=== PATIENT | male | born 1945 | race Caucasian/White ===

== ENCOUNTER → 2017-12-25 11:07 | Outpatient (CLI) | payer OTHER, SELFPAY ==
[2017-12-25 12:16] LABS: Add Manual Diff / Slide Review NO; Basophils Percent Auto 0.4 % (0-2); Eosinophils Percent Auto 2.4 % (2-4); Hematocrit 39.9 % (41-53); Hemoglobin 13.9 g/dL (13.5-17.5); Lymphocytes Percent Auto 25.2 % (25-40); Mean Corpuscular HGB Conc 34.8 % (30-36); Mean Corpuscular Hemoglobin 29.3 PG (26-34); Monocytes Percent Auto 10.2 % (3-14); Neutrophils Absolute Auto 3500 /uL (3000-5900); Neutrophils Percent Auto 61.8 % (50-75); Platelet Count 316 X10^3/uL (150-400); Red Blood Cell Count 4.74 X10^6/uL (4.5-5.9); Red Cell Distribution Width 12.5 % (11.6-14.8); White Blood Cell Count 5.7 X10^3/uL (4.5-11.0)
[2017-12-25 12:24] LABS: Alanine Aminotransferase 24 IU/L (21-72); Albumin 4.6 g/dL (3.5-5.0); Albumin Globulin Ratio 1.5 (1.0-2.8); Alkaline Phosphatase 41 U/L (38-126); Aspartate Aminotransferase 31 IU/L (17-59); Bilirubin Total 0.4 mg/dL (0.2-1.3); Blood Urea Nitrogen 12 mg/dL (9-20); Calcium 9.6 mg/dL (8.4-10.2); Carbon Dioxide 30 mmol/L (22-32); Chloride 93 mmol/L (98-107); Estimated Glomerular Filt Rate > 60.0 mL/min (>60); Globulin 3.1 g/dL (1.7-4.1); Glucose 109 mg/dL (80-110); HEMOLYSIS < 15 (0-50); Potassium 4.4 mmol/L (3.4-5.1); Sodium 134 mmol/L (137-145); Total Protein 7.7 g/dL (6.3-8.2)
[2017-12-25 13:38] LABS: Hemoglobin A1C% w Est Avg Glu 5.4 % (4.0-6.0)
[2017-12-25 17:11] LABS: HEMOLYSIS < 15 (0-50); Iron 76 ug/dL (49-181)
[2017-12-25 17:22] LABS: Percent Iron Saturation 25 % (20-50); Total Iron Binding Capacity 304 ug/dL (261-462); Transferrin 241 mg/dL (206-381)
== END ==
PROVIDERS: Family Provider Internal Medicine; PCP Internal Medicine; Visit Provider Internal Medicine
DX: I10 Essential (primary) hypertension (principal); D63.8 Anemia in other chronic diseases classified elsewhere; M15.0 Primary generalized (osteo)arthritis; E11.9 Type 2 diabetes mellitus without complications
CPT/HCPCS: 36415; 80053; 83036; 83540; 83550; 85025

== ENCOUNTER → 2018-06-24 07:04 | Outpatient (CLI) | payer OTHER, SELFPAY ==
[2018-06-24 08:05] LABS: Add Manual Diff / Slide Review NO; Basophils Absolute Auto 0 /uL (0-100); Basophils Percent Auto 0.3 % (0-2); Eosinophils Absolute Auto 100 /uL (0-450); Eosinophils Percent Auto 1.4 % (2-4); Hematocrit 41.1 % (41-53); Hemoglobin 14.2 g/dL (13.5-17.5); Lymphocytes Absolute Auto 1200 /uL (1100-4500); Mean Corpuscular HGB Conc 34.4 % (30-36); Mean Corpuscular Hemoglobin 29.1 PG (26-34); Mean Corpuscular Volume 84.6 fL (80-100); Monocytes Absolute Auto 600 /uL (0-900); Neutrophils Absolute Auto 2700 /uL (1500-7000); Neutrophils Percent Auto 59.3 % (50-75); Platelet Count 304 X10^3/uL (150-400); Red Blood Cell Count 4.86 X10^6/uL (4.5-5.9); Red Cell Distribution Width 12.5 % (11.6-14.8); White Blood Cell Count 4.5 X10^3/uL (4.5-11.0)
[2018-06-24 08:23] LABS: Hemoglobin A1C% w Est Avg Glu 5.4 % (4.0-6.0)
[2018-06-24 08:52] LABS: Alanine Aminotransferase 36 IU/L (21-72); Albumin 4.8 g/dL (3.5-5.0); Albumin Globulin Ratio 1.5 (1.0-2.8); Alkaline Phosphatase 50 U/L (38-126); Aspartate Aminotransferase 35 IU/L (17-59); BUN Creatinine Ratio 21.3 (6-22); Bilirubin Total 0.6 mg/dL (0.2-1.3); Blood Urea Nitrogen 17 mg/dL (9-20); Calcium 9.8 mg/dL (8.4-10.2); Carbon Dioxide 28 mmol/L (22-32); Chloride 92 mmol/L (98-107); Cholesterol 170 mg/dL (140-199); Estimated Glomerular Filt Rate > 60.0 mL/min (>60); Globulin 3.2 g/dL (1.7-4.1); Glucose 109 mg/dL (80-110); HDL Cholesterol 47 mg/dL (40-60); HEMOLYSIS < 15 (0-50); LDL Cholesterol Calculated 109 mg/dL (<100); Potassium 3.7 mmol/L (3.4-5.1); Sodium 133 mmol/L (137-145); Triglycerides 71 mg/dL (35-150)
[2018-06-24 09:22] LABS: Prostate Specific Antigen 0.151 ng/mL (0.10-4.00)
== END ==
PROVIDERS: PCP Internal Medicine; Visit Provider Internal Medicine
DX: I10 Essential (primary) hypertension (principal); E11.9 Type 2 diabetes mellitus without complications; B18.2 Chronic viral hepatitis C
CPT/HCPCS: 36415; 80053; 80061; 83036; 84153; 85025

== ENCOUNTER → 2019-01-01 10:59 | Outpatient (CLI) | payer OTHER, SELFPAY ==
[2019-01-01 11:28] LABS: Add Manual Diff / Slide Review NO; Basophils Absolute Auto 0 /uL (0-100); Basophils Percent Auto 0.4 % (0-2); Eosinophils Absolute Auto 100 /uL (0-450); Eosinophils Percent Auto 2.4 % (2-4); Hematocrit 41.3 % (41-53); Hemoglobin 14.1 g/dL (13.5-17.5); Lymphocytes Absolute Auto 1500 /uL (1100-4500); Lymphocytes Percent Auto 30.7 % (25-40); Mean Corpuscular HGB Conc 34.2 % (30-36); Mean Corpuscular Hemoglobin 29.1 PG (26-34); Monocytes Absolute Auto 700 /uL (0-900); Monocytes Percent Auto 14.9 % (3-14); Neutrophils Absolute Auto 2500 /uL (1500-7000); Neutrophils Percent Auto 51.6 % (50-75); Platelet Count 282 X10^3/uL (150-400); Red Blood Cell Count 4.85 X10^6/uL (4.5-5.9); Red Cell Distribution Width 12.7 % (11.6-14.8); White Blood Cell Count 4.8 X10^3/uL (4.5-11.0)
[2019-01-01 11:41] LABS: Hemoglobin A1C% w Est Avg Glu 5.2 % (4.0-6.0)
[2019-01-01 11:42] LABS: Alanine Aminotransferase 16 IU/L (21-72); Albumin 4.7 g/dL (3.5-5.0); Albumin Globulin Ratio 1.4 (1.0-2.8); Alkaline Phosphatase 47 U/L (38-126); Aspartate Aminotransferase 26 IU/L (17-59); Bilirubin Total 0.6 mg/dL (0.2-1.3); Blood Urea Nitrogen 23 mg/dL (9-20); Calcium 9.8 mg/dL (8.4-10.2); Carbon Dioxide 29 mmol/L (22-32); Chloride 96 mmol/L (98-107); Cholesterol 187 mg/dL (140-199); Estimated Glomerular Filt Rate > 60.0 mL/min (>60); Globulin 3.3 g/dL (1.7-4.1); Glucose 88 mg/dL (80-110); HDL Cholesterol 49 mg/dL (40-60); HEMOLYSIS < 15 (0-50); LDL Cholesterol Calculated 105 mg/dL (<100); Potassium 4.2 mmol/L (3.4-5.1); Sodium 138 mmol/L (137-145); Triglycerides 167 mg/dL (35-150)
[2019-01-01 12:09] LABS: Prostate Specific Antigen 0.228 ng/mL (0.10-4.00)
== END ==
PROVIDERS: PCP Internal Medicine; Visit Provider Internal Medicine
DX: I10 Essential (primary) hypertension (principal); B18.2 Chronic viral hepatitis C; E11.9 Type 2 diabetes mellitus without complications
CPT/HCPCS: 36415; 80053; 80061; 83036; 84153; 85025

== ENCOUNTER → 2020-01-12 07:12 | Outpatient (CLI) | payer OTHER, SELFPAY ==
[2020-01-12 08:46] LABS: Add Manual Diff / Slide Review NO; Basophils Absolute Auto 0 /uL (0-100); Basophils Percent Auto 0.5 % (0-2); Eosinophils Absolute Auto 100 /uL (0-450); Eosinophils Percent Auto 1.9 % (2-4); Hematocrit 41.2 % (41-53); Hemoglobin 13.9 g/dL (13.5-17.5); Lymphocytes Absolute Auto 1300 /uL (1100-4500); Lymphocytes Percent Auto 28.1 % (25-40); Mean Corpuscular HGB Conc 33.8 % (30-36); Mean Corpuscular Hemoglobin 28.4 PG (26-34); Mean Corpuscular Volume 84.2 fL (80-100); Monocytes Absolute Auto 700 /uL (0-900); Monocytes Percent Auto 14.4 % (3-14); Neutrophils Absolute Auto 2500 /uL (1500-7000); Neutrophils Percent Auto 55.1 % (50-75); Platelet Count 239 X10^3/uL (150-400); Red Blood Cell Count 4.89 X10^6/uL (4.5-5.9); Red Cell Distribution Width 13.3 % (11.6-14.8); White Blood Cell Count 4.6 X10^3/uL (4.5-11.0)
[2020-01-12 08:56] LABS: Alanine Aminotransferase 18 IU/L (<50); Albumin 4.5 g/dL (3.5-5.0); Albumin Globulin Ratio 1.4 (1.0-2.8); Alkaline Phosphatase 53 U/L (38-126); Aspartate Aminotransferase 26 IU/L (17-59); BUN Creatinine Ratio 19.8 (6-22); Bilirubin Total 0.6 mg/dL (0.2-1.3); Blood Urea Nitrogen 17 mg/dL (9-20); Calcium 9.5 mg/dL (8.4-10.2); Carbon Dioxide 28 mmol/L (22-32); Chloride 98 mmol/L (98-107); Cholesterol 186 mg/dL (140-199); Estimated Glomerular Filt Rate > 60.0 mL/min (>60); Globulin 3.2 g/dL (1.7-4.1); Glucose 109 mg/dL (80-110); HDL Cholesterol 51 mg/dL (40-60); HEMOLYSIS < 15 (0-50); LDL Cholesterol Calculated 119 mg/dL (<100); Potassium 3.7 mmol/L (3.4-5.1); Sodium 135 mmol/L (137-145); Total Protein 7.7 g/dL (6.3-8.2); Triglycerides 82 mg/dL (35-150)
[2020-01-12 09:02] LABS: Hemoglobin A1C% w Est Avg Glu 5.5 % (4.0-6.0)
== END ==
PROVIDERS: PCP Internal Medicine; Referring Provider Internal Medicine; Visit Provider Internal Medicine
DX: E11.9 Type 2 diabetes mellitus without complications (principal); I10 Essential (primary) hypertension; M21.372 Foot drop, left foot
CPT/HCPCS: 36415; 80053; 80061; 83036; 85025

== ENCOUNTER → 2020-06-21 12:02 | Outpatient (CLI) | payer MEDICARE, SELFPAY ==
[2020-06-21] MEDS: COVID-19 VACC #1, MRNA(MOD) 100 MCG/0.5 ML VIAL IM (12:05)
== END ==
PROVIDERS: PCP Internal Medicine; Visit Provider Internal Medicine
DX: Z23 Encounter for immunization (principal)
CPT/HCPCS: 0011A; 91301

== ENCOUNTER → 2020-07-04 07:39 | Outpatient (CLI) | payer OTHER, SELFPAY ==
[2020-07-04 08:59] LABS: BUN Creatinine Ratio 21.1 (6-22); Blood Urea Nitrogen 19 mg/dL (9-20); Calcium 9.3 mg/dL (8.4-10.2); Carbon Dioxide 31 mmol/L (22-32); Chloride 98 mmol/L (98-107); Estimated Glomerular Filt Rate > 60.0 mL/min (>60); Glucose 124 mg/dL (80-110); HEMOLYSIS < 15 (0-50); Potassium 4.1 mmol/L (3.4-5.1); Sodium 135 mmol/L (137-145)
== END ==
PROVIDERS: PCP Internal Medicine; Referring Provider Internal Medicine; Visit Provider Internal Medicine
DX: I10 Essential (primary) hypertension (principal)
CPT/HCPCS: 36415; 80048

== ENCOUNTER → 2020-07-19 12:16 | Outpatient (CLI) | payer MEDICARE, SELFPAY ==
[2020-07-19] MEDS: COVID-19 VACC #2, MRNA(MOD) 100 MCG/0.5 ML VIAL IM (12:25)
== END ==
PROVIDERS: PCP Internal Medicine; Visit Provider Internal Medicine
DX: Z23 Encounter for immunization (principal)
CPT/HCPCS: 0012A; 91301

== ENCOUNTER → 2020-08-01 13:18 | Outpatient (CLI) | payer OTHER, SELFPAY ==
--- NOTE | 2020-08-01 13:19 | DI.ECHO.S_ITS ---
[facility] +---------+ : : [address] : : : : [id number] : : : : Phone: [phone]+ Echocardiogram Report + + :Name: ALISSON CAMPOS Study Date: 08/01/2020 Height: 70 in : :[facility] ReadingLocation: Weight: 213 lb : : Gender: Male BSA: 2.1 m2 : :: 1945 Age: 74 yrs BP: 127/76 mmHg: :Reason For Study: AORTIC STENOSIS : :Ordering Physician: MORENO, : :TAE Performed By: Jade Lake : :Referring: ATE MAYER : + + Interpretation Summary The left ventricle is normal in size. The ejection fraction is estimated to be 60-65%. There are no focal wall motion abnormalities. The right ventricle is normal in size and function. No significant valvular pathology seen. Procedure: A two-dimensional transthoracic echocardiogram with color flow and Doppler was performed. The study quality was technically adequate. There is no prior echocardiogram noted for this patient. The patient was in normal sinus rhythm during the exam. The heart rate ranged between 73-87 bpm during the study. Left Ventricle: The left ventricle is normal in size. Proximal septal thickening is noted. There is no echo evidence for significant left ventricular outflow tract obstruction. There is no thrombus. The ejection fraction is estimated to be 60-65%. There are no focal wall motion abnormalities. Diastolic parameters suggest a relaxation abnormality of the left ventricle, consistent with probable normal filling pressures. Right Ventricle: The right ventricle is normal in size and function. Atria: The left atrial size is normal. Right atrial size is normal. There is no Doppler evidence for an interatrial shunt. The thickening of interatrial septum suggests lipomatous hypertrophy. Mitral Valve: There is mild mitral annular calcification. The mitral valve leaflets are mildly calcified. The mitral valve chordae are thickened and/or calcified. There is trace mitral regurgitation. Aortic Valve: The aortic valve is trileaflet. The aortic valve opens well. There is no aortic valve stenosis. No aortic regurgitation is present. Tricuspid Valve: The tricuspid valve is normal in structure and function. There is trace tricuspid regurgitation. Pulmonary artery pressures cannot be estimated because of the lack of a measurable TR jet velocity. Pulmonic Valve: The pulmonic valve is not well visualized. There is trace pulmonic regurgitation. Great Vessels: The aortic root is normal size. The ascending aorta is at the upper limits of normal in size. The IVC is of normal diameter and collapses greater than 50% with a sniff. This suggests a low right atrial pressure of 3 mm Hg. Pericardium/ Pleura There is no pericardial effusion. There is no pleural effusion. MMode/2D Measurements & Calculations LVIDd: 4.6 cm LVOT diam: 2.1 cm LVIDs: 2.9 cm Ao root diam: 3.9 cm FS: 38.2 % asc Aorta Diam: 3.9 cm EPSS: 0.55 cm Ao Arch Diam (Prox Trans): 2.8 cm IVSd: 0.88 cm LVPWd: 0.83 cm LV pradhan. diameter/BSA (cm/m^2): 2.2 LV sys. diameter/BSA (cm/m^2): 1.3 LA A2 area: 17.7 cm2 RA long axis: 5.7 cm LA A4 area: 15.3 cm2 RA area: 16.5 cm2 LA length (vol): 5.4 cm RA vol: 40.5 ml LA vol: 42.2 ml RA : 18.9 ml/m2 LA vol index: 19.7 ml/m2 IVC diam: 0.95 cm RVD1 (basal): 3.1 cm TAPSE: 2.5 cm Doppler Measurements & Calculations Ao V2 max: 111.8 cm/sec LVOT Max Nick: 107.1 cm/sec Ao V2 mean: 81.7 cm/sec LV V1 max P.6 mmHg Ao max P.0 mmHg LV V1 VTI: 20.0 cm Ao mean P.9 mmHg LATRICIA(I,D): 3.3 cm2 Ao V2 VTI: 21.5 cm LATRICIA(V,D): 3.4 cm2 sev ratio: 0.93 LATRICIA indexed to BSA (cm^2/m^2): 1.6 MV E max nick: 77.7 cm/sec PA V2 max: 69.4 cm/sec MV A max nick: 109.4 cm/sec PA V2 mean: 47.3 cm/sec MV E/A: 0.71 PA mean P.0 mmHg Med Peak E' Nick: 6.8 cm/sec PA pr(Accel): 22.5 mmHg E/E' med: 11.4 Lat Peak E' Nick: 7.4 cm/sec E/E' lat: 10.5 E/e' average: 11.0 MV dec time: 0.36 sec SV(LVOT): 71.4 ml Reading Physician:05:58 PM
== END ==
PROVIDERS: PCP Internal Medicine; Referring Provider Internal Medicine; Visit Provider Internal Medicine
DX: I35.8 Other nonrheumatic aortic valve disorders (principal)
CPT/HCPCS: 93306

== ENCOUNTER → 2020-12-19 11:56 | Outpatient (CLI) | payer OTHER, SELFPAY ==
--- NOTE | 2020-12-19 | DI.MRI.S_ITS ---
PROCEDURE: MR BRAIN (IAC) WWO CON INDICATIONS: Sudden idiopathic hearing loss, left ear TECHNIQUE: Noncontrast sagittal T1 spin echo, axial FLAIR, axial gradient echo, axial diffusion and ADC through the brain. Axial thin-slice 3D CISS, coronal TruFISP, axial T1 spin echo with fat saturation through the internal auditory canals. After the administration of contrast, thin slice axial and coronal T1 spin echo with fat saturation through the internal auditory canals, and axial T1 spin echo with fat saturation through the brain. COMPARISON: MR, BRAIN WITH AND WITHOUT CONTRAS, 10/06/2009, 17:21. FINDINGS: Image quality: Excellent. Cerebellopontine angles: No cerebellopontine angle masses. Inner ear structures appear normally formed. No suspicious enhancement in the internal auditory canal or along the course of the 7th cranial nerve. CSF spaces: Ventricles are normal in size and shape. No extra-axial fluid collections. Basal cisterns are patent. Brain: No intracranial bleeds or mass effects. There is moderate, diffuse cerebral volume loss. There are minimal periventricular and subcortical white matter chronic microvascular ischemic changes. Cruz-white matter interface is intact. No abnormal intracranial enhancement. Diffusion weighted images demonstrate no acute ischemic insults. Brainstem appears normal. Normal intravascular flow voids are present. Dural sinuses demonstrate normal postcontrast enhancement. Skull and face: Calvarial marrow signal is normal. Orbits appear normal. Sinuses: Sinuses and mastoids are clear. IMPRESSION: 1. No evidence of vestibular schwannoma. 2. No acute intracranial disease process. 3. No abnormal intracranial mass or mass effect. 4. No suspicious postcontrast enhancement. 5. Moderate, diffuse cerebral volume loss. 6. Minimal periventricular and subcortical white matter chronic microvascular ischemic change. Dictated by: Jyothi Jones MD, PhD on 12/19/2020 at 17:11 Approved by: Jyothi Jones MD, PhD on 12/19/2020 at 17:16
== END ==
PROVIDERS: PCP Internal Medicine; Referring Provider Otolaryngology; Visit Provider Otolaryngology
DX: H91.22 Sudden idiopathic hearing loss, left ear (principal)
CPT/HCPCS: 70553

== ENCOUNTER 2022-08-28 11:01 | Emergency (ER) | payer OTHER, SELFPAY ==
[2022-08-28] VITALS (11 sets, daily range): BP systolic 109–147; BP diastolic 65–89; PULSE 74–93; RESP 12–19; TEMP 36.6; O2SAT 96–100; BMI 29.5
[2022-08-28 12:02] LABS: Add Manual Diff / Slide Review NO; Basophils Absolute Auto 0 /uL (0-100); Basophils Percent Auto 0.3 % (0-2); Eosinophils Absolute Auto 0 /uL (0-450); Eosinophils Percent Auto 0.7 % (2-4); Hematocrit 45.4 % (41-53); Hemoglobin 15.3 g/dL (13.5-17.5); Lymphocytes Absolute Auto 1400 /uL (1100-4500); Lymphocytes Percent Auto 21.5 % (25-40); Mean Corpuscular HGB Conc 33.8 % (30-36); Mean Corpuscular Hemoglobin 29.2 PG (26-34); Mean Corpuscular Volume 86.3 fL (80-100); Monocytes Absolute Auto 600 /uL (0-900); Monocytes Percent Auto 9.5 % (3-14); Neutrophils Absolute Auto 4500 /uL (1500-7000); Platelet Count 278 X10^3/uL (150-400); Red Blood Cell Count 5.26 X10^6/uL (4.5-5.9); Red Cell Distribution Width 12.9 % (11.6-14.8); White Blood Cell Count 6.6 X10^3/uL (4.5-11.0)
[2022-08-28 12:08] LABS: Alanine Aminotransferase 21 IU/L (<50); Albumin 4.6 g/dL (3.5-5.0); Albumin Globulin Ratio 1.2 (1.0-2.8); Alkaline Phosphatase 51 U/L (38-126); Aspartate Aminotransferase 34 IU/L (17-59); BUN Creatinine Ratio 18.6 (6-22); Bilirubin Total 0.7 mg/dL (0.2-1.3); Blood Urea Nitrogen 13 mg/dL (9-20); Calcium 9.7 mg/dL (8.4-10.2); Carbon Dioxide 27 mmol/L (22-32); Chloride 98 mmol/L (98-107); Estimated Glomerular Filt Rate > 60 mL/min (>60); Globulin 3.7 g/dL (1.7-4.1); Glucose 127 mg/dL (80-110); HEMOLYSIS < 15 (0-50); Potassium 3.5 mmol/L (3.4-5.1); Sodium 135 mmol/L (137-145); Total Protein 8.3 g/dL (6.3-8.2)
--- NOTE | 2022-08-28 13:18 | ED_ITS ---
HPI - Dizziness General Chief Complaint: Dizziness Stated Complaint: sent by WIC/stroke Time Seen by Provider: 08/28/22 11:32 Source: patient and family Mode of arrival: Ambulatory History of Present Illness HPI Narrative: Patient is a 76-year-old male history of hypertension presenting today with dizziness that started since yesterday. He reports that he woke up into the exercise room plugged in his electronic device turned around and immediately felt dizzy. States that now every time he walks with his walker healing left. He is feeling little bit better today than he did previously. But is still very positional. Minimal nausea no vomiting. No chest pain or palpitations. No numbness tingling or weakness. Related Data Home Medications Medication Instructions Recorded Confirmed amlodipine 10 mg tablet 10 mg PO Q DAY ##0 08/31/11 08/28/22 lisinopril 40 mg tablet 40 mg PO QDAY ##0 08/31/11 08/28/22 hydrochlorothiazide 25 mg tablet 25 mg PO QDAY ##0 09/12/11 08/28/22 CA PANTOTHENATE/FOLIC ACID/VIT 1 tab PO QDAY ##0 06/20/12 (MULTIVITAMIN) CHOLECALCIFEROL (VITAMIN D) 2,000 units PO QDAY ##0 06/20/12 Fish Oil (FISH OIL~) 2,400 mg PO QDAY ##0 06/20/12 [CALCIUM & VIT. D3] 600 mg PO QDAY ##0 06/20/12 [SUPER B-50 COMPLEX] 1 tab PO QDAY ##0 06/20/12 ascorbic acid (vitamin C) 500 mg 1,000 mg PO QDAY ##0 06/20/12 tablet gabapentin 600 mg tablet 600 mg PO TID ##0 06/20/12 (Neurontin) tramadol 50 mg tablet 100 mg PO Q 6HRS PRN ##0 06/20/12 Previous Rx's Medication Instructions Recorded meclizine 25 mg tablet 25 mg PO TID PRN dizziness #10 tabs 08/28/22 ondansetron 4 mg disintegrating 4 mg PO Q8H PRN nausea and 08/28/22 tablet vomiting #10 tabs Allergies Allergy/AdvReac Type Severity Reaction Status Date / Time No Known Drug Allergies Allergy Verified 08/28/22 11:23 Review of Systems Review of Systems ROS Unobtainable: All systems reviewed & are unremarkable except as noted in HPI and below Patient History Social History Smoking Status: Never smoker Smoking Status: Never smoker alcohol intake frequency: 0-2 drinks per day Substance Use Type: does not use Exam Initial Vital Signs Initial Vital Signs: Vital Signs Temperature 97.9 F 08/28/22 11:03 Pulse Rate 89 08/28/22 11:03 Respiratory Rate 18 08/28/22 11:03 Blood Pressure 147/89 H 08/28/22 11:03 Pulse Oximetry 100 08/28/22 11:03 Oxygen Delivery Method Room Air 08/28/22 11:03 GENERAL: Alert well-appearing 76-year-old male and in no acute distress. HEENT: Head atraumatic,EOMI, pupils reactive, face symmetric, moist mucous membranes CARDIOVASCULAR: Regular rate and rhythm without murmurs, rubs or gallops. RESPIRATORY: Breath sounds equal bilaterally, no wheezes rales or rhonchi. ABDOMEN: Soft, nontender. Normoactive bowel sounds all 4 quadrants. No guarding or rebound. EXTREMITIES: Normal range of motion, no clubbing or edema. Neurovascularly intact NEUROLOGICAL: Alert and oriented x4.Normal gait and speech. Cranial nerves II through XII grossly intact. Good myzktf-lj-dgqj, good bjoh-iv-rvnf, strength equal bilaterally, no dysarthria or aphasia, sensation in tact to soft touch bilaterally, no visual changes, no facial droop SKIN: Warm, dry, no laceration, no petechiae, no rashes or lesions. Scores NIH Stroke Scale Level of Conciousness: Alert, keenly responsive Ask month/age: Answers both questions correctly. Open/close eyes, close hand: Performs both tasks correctly Best gaze horizontal: Normal Visual odom: No visual loss Facial palsy: Normal symetrical movement Left arm drift: No drift for full 10 sec Right arm drift: No drift for full 10 sec Left leg drift: No drift for full 5 sec Right leg drift: No drift for full 5 sec Limb ataxia: Absent Sensory on face/arms/legs: Normal, no sensory loss Best language: No aphasia, normal Dysarthria: Normal Extinction or inattention: No abnormality Total NIH Stroke scale score: 0 Course Orders Ordered: ED Orders 08/28/22 11:15 Complete Blood Count AUTO DIFF Stat Comprehensive Metabolic Panel Stat Troponin & CK Cardiac Panel Stat 08/28/22 11:25 EKG-12 Lead Stat 08/28/22 13:56 CT angio head and neck Stat Vital Signs Vital signs: Vital Signs - 8 hr 08/28/22 11:03 08/28/22 11:09 08/28/22 11:11 Temperature 97.9 F Pulse Rate 89 87 Respiratory Rate 18 Blood Pressure 147/89 H 147/89 H Pulse Oximetry 100 Oxygen Delivery Method Room Air 08/28/22 11:11 08/28/22 11:30 08/28/22 11:30 Temperature Pulse Rate 93 H 82 Respiratory Rate 12 12 Blood Pressure 119/72 Pulse Oximetry 100 99 Oxygen Delivery Method Room Air 08/28/22 12:00 08/28/22 12:00 08/28/22 12:30 Temperature Pulse Rate 78 Respiratory Rate 16 Blood Pressure 117/65 109/72 Pulse Oximetry 98 Oxygen Delivery Method 08/28/22 12:30 08/28/22 13:00 08/28/22 13:00 Temperature Pulse Rate 76 80 Respiratory Rate 15 19 Blood Pressure 123/84 Pulse Oximetry 98 99 Oxygen Delivery Method Room Air 08/28/22 14:56 08/28/22 13:30 08/28/22 13:30 Temperature Pulse Rate 81 81 Respiratory Rate 17 16 Blood Pressure 120/76 122/84 Pulse Oximetry 96 99 Oxygen Delivery Method Room Air 08/28/22 14:00 08/28/22 14:30 Temperature Pulse Rate 80 74 Respiratory Rate 13 13 Blood Pressure Pulse Oximetry 99 99 Oxygen Delivery Method MDM - Dizziness Lab Data 08/28/22 11:15 08/28/22 11:15 Labs: Lab Results 08/28/22 08/28/22 08/28/22 Range/Units 11:15 11:15 11:15 WBC 6.6 (4.5-11.0) X10^3/uL RBC 5.26 (4.5-5.9) X10^6/uL Hgb 15.3 (13.5-17.5) g/dL Hct 45.4 (41-53) % MCV 86.3 (80-100) fL MCH 29.2 (26-34) PG MCHC 33.8 (30-36) % RDW 12.9 (11.6-14.8) % Plt Count 278 (150-400) X10^3/uL Neut % (Auto) 68.0 (50-75) % Lymph % (Auto) 21.5 L (25-40) % Bee % (Auto) 9.5 (3-14) % Eos % (Auto) 0.7 L (2-4) % Baso % (Auto) 0.3 (0-2) % Neut # (Auto) 4500 (0617-2529) /uL Lymph # (Auto) 1400 (8786-7951) /uL Bee # (Auto) 600 (0-900) /uL Eos # (Auto) 0 (0-450) /uL Baso # (Auto) 0 (0-100) /uL Sodium 135 L (137-145) mmol/L Potassium 3.5 (3.4-5.1) mmol/L Chloride 98 (98-107) mmol/L Carbon Dioxide 27 (22-32) mmol/L BUN 13 (9-20) mg/dL Creatinine 0.70 (0.66-1.25) mg/dL Estimated GFR > 60 (>60) mL/min BUN/Creatinine Ratio 18.6 (6-22) Glucose 127 H (80-110) mg/dL Calcium 9.7 (8.4-10.2) mg/dL Total Bilirubin 0.7 (0.2-1.3) mg/dL AST 34 (17-59) IU/L ALT 21 (<50) IU/L Alkaline Phosphatase 51 (38-126) U/L Total Creatine Kinase 92 (55-170) U/L CK-MB (CK-2) TNP CK-MB (CK-2) Rel Index TNP Troponin I < 0.012 (0.01-0.034) ng/mL Total Protein 8.3 H (6.3-8.2) g/dL Albumin 4.6 (3.5-5.0) g/dL Globulin 3.7 (1.7-4.1) g/dL Albumin/Globulin Ratio 1.2 (1.0-2.8) Point of Care Testing Glucose POC 124 Urine Dip Bedside Urine Glucose Negative Bedside Urine Bilirubin - Negative Bedside Urine Ketone - Negative Urine Specific [place] 1.010 Bedside Urine Occult Blood - Negative Bedside Urine pH 7.0 Bedside Urine Protein - Negative Bedside Urine Urobilinogen - Negative Bedside Urine Nitrite - Negative Bedside Urine Leukocytes - Negative Esterase Imaging Data Chest x-ray: Radiologist's Impression: PROCEDURE:? CT ANGIO HEAD AND NECK ? INDICATIONS:? dizzy leans to the left ? TECHNIQUE:? Pre-contrast 4.5 mm thick sections acquired from the foramen magnum to the vertex.? After the administration of intravenous contrast, 1 mm thick sections acquired from the aortic arch through the [place] of [place]arma.? Post-contrast 4.5 mm thick sections then re- acquired from the foramen magnum to the vertex.? 3-dimensional qvlnepo-sighpmibm-vtbymzoxua (MIP) and/or volume rendering reformats were acquired of the central intracranial vasculature and neck separately. For radiation dose reduction, the following was used:? automated exposure control, adjustment of mA and/or kV according to patient size.? ? COMPARISON:? None. ? FINDINGS:? Image quality:? Excellent.? ? BRAIN:? The ventricular system and cortical sulci demonstrate atrophy, consistent for the patient's stated age. There are areas of hypodensity within the periventricular and subcortical white matter.? There is no acute intra-or extra axial fluid colle ction. No acute hemorrhage, mass lesion or midline shift. Brainstem is unremarkable. Globes are symmetrical. Sinuses are aerated. Osseous structures are intact. ? HEAD CT ANGIOGRAPHY:? Anterior circulation:? Intracranial internal carotid arteries are normal in size and flow.? The flow within the paired anterior cerebral arteries is normal and symmetric.? The flow within the middle cerebral arteries is normal and symmetric.? The anterior communicating artery is seen.? No aneurysms are seen.? ? Posterior circulation:? Visualized portions of the vertebral arteries demonstrate normal caliber, and join to form a normal appearing basilar artery.? Flow within the posterior cerebral arteries is normal and symmetric.? No aneurysms are seen.? ? NECK CT ANGIOGRAPHY:? Carotid system:? The great vessels demonstrate a conventional anatomy as they arise from the aortic arch.? The origins of the common carotid arteries appear patent.? The common carotid arteries demonstrate normal caliber and courses.? The bifurcation regions are both widely patent.? There is calcification at the origin of the left internal carotid artery with 50-60% stenosis.? Calcifications are present at the origin of the right internal carotid artery with stenosis of approximately 60%.? In addition, there is calcification at the origin of the right external carotid artery with approximately 60% stenosis. ? Posterior circulation:? The origins of the vertebral arteries both appear widely patent.? The more superior extracranial portions of both vertebral arteries also demonstrate normal courses and calibers.? They join to form a normal appearing basilar artery.? ? Soft tissues:? Visualized neck soft tissues demonstrate no suspicious abnormalities.? ? Bones:? No suspicious bony lesions.? Visualized cervical spine appears normally aligned.? IMPRESSION:? ? 1. No acute intracranial process. ? 2. Moderate atrophy and chronic microvascular ischemic changes. ? 3. 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 ? 4. Approximate 60% stenosis at the origin of the right internal carotid artery. ? 5. Approximate 60% stenosis at the origin the right external carotid artery.? ? ? Any quantitative measurements of stenosis were performed using NASCET criteria.? ? ? Dictated by: Maki Torres M.D. on 08/28/2022 at 14:15 ? ? ECG Data Interpretation: Sinus rhythm rate 83 UT interval 190 QRS [address] changes right bundle- branch block noted similar to previous EKGs MDM Narrative Medical decision making narrative: Patient is 76-year-old who presents with with dizziness started yesterday morning when he quickly turned around. It is very much positional sitting still he has no dizziness. However when he moves in certain positions he gets very dizzy no numbness tingling or weakness. He also feels like when he walks and ambulates he walks towards the left. Blood work is overall reassuring. No leukocytosis no anemia, no electrolyte abnormality or PAULINE. Patient is not having any sort of chest pain or palpitations. EKG shows a sinus rhythm. He has no fever or infectious symptoms I think unlikely to be viral. Patient does not have any symptoms here in the emergency department does not require any medications. CT angio does not show any critical stenosis or evidence of CVA. He ambulated with walker without any difficulty did not lean to the left. At this time I think symptoms are most consistent with a vertigo. Discharge Plan Departure Patient Disposition: Home Clinical Impression: Vertigo Instructions: DI for Vertigo Activity Restrictions/Additional Instructions: *You have been diagnosed with vertigo *What to do: At this time your symptoms improve and you can enjoy your trip *Continue to take medications as directed--> SENT [facility] Meclizine 25 mg every 8 hours if needed for dizziness Zofran 4 mg every 8 hours if needed for nausea or vomiting *Follow up with your primary care provider in 2-3 days or call [phone] *Return to ER if you should have increasing dizziness persistent vomiting nu mbness tingling weakness or any new, worsening or concerning symptoms Prescriptions: New meclizine 25 mg tablet 25 mg PO TID PRN (Reason: dizziness) Qty: 10 0RF ondansetron 4 mg tablet,disintegrating 4 mg PO Q8H PRN (Reason: nausea and vomiting) Qty: 10 0RF No Action amlodipine 10 MG tablet 10 mg PO Q DAY Qty: 0 lisinopril 40 MG tablet 40 mg PO QDAY Qty: 0 hydrochlorothiazide 25 MG tablet 25 mg PO QDAY Qty: 0 [SUPER B-50 COMPLEX] 1 tab PO QDAY Qty: 0 CA PANTOTHENATE/FOLIC ACID/VIT (MULTIVITAMIN) 1 tab PO QDAY Qty: 0 tramadol 50 MG tablet 100 mg PO Q 6HRS PRN Qty: 0 ascorbic acid (vitamin C) 500 MG tablet 1,000 mg PO QDAY Qty: 0 CHOLECALCIFEROL (VITAMIN D) 2,000 units PO QDAY Qty: 0 gabapentin [Neurontin] 600 MG tablet 600 mg PO TID Qty: 0 Fish Oil (FISH OIL~) 2,400 mg PO QDAY Qty: 0 [CALCIUM & VIT. D3] 600 mg PO QDAY Qty: 0 Referrals: Saúl Ziegler MD [Primary Care Provider] - Stand Alone Forms: Patient Portal/API
[2022-08-28 13:49] LABS: Creatine Kinase 92 U/L (55-170)
--- NOTE | 2022-08-28 13:56 | DI.CT.S_ITS ---
PROCEDURE: CT ANGIO HEAD AND NECK INDICATIONS: dizzy leans to the left TECHNIQUE: Pre-contrast 4.5 mm thick sections acquired from the foramen magnum to the vertex. After the administration of intravenous contrast, 1 mm thick sections acquired from the aortic arch through the [place] of Sharma. Post-contrast 4.5 mm thick sections then re-acquired from the foramen magnum to the vertex. 3-dimensional wdhpfjk-fcinlaffd-ixkeelbtwr (MIP) and/or volume rendering reformats were acquired of the central intracranial vasculature and neck separately. For radiation dose reduction, the following was used: automated exposure control, adjustment of mA and/or kV according to patient size. COMPARISON: None. FINDINGS: Image quality: Excellent. BRAIN: The ventricular system and cortical sulci demonstrate atrophy, consistent for the patient's stated age. There are areas of hypodensity within the periventricular and subcortical white matter. There is no acute intra-or extra axial fluid collection. No acute hemorrhage, mass lesion or midline shift. Brainstem is unremarkable. Globes are symmetrical. Sinuses are aerated. Osseous structures are intact. HEAD CT ANGIOGRAPHY: Anterior circulation: Intracranial internal carotid arteries are normal in size and flow. The flow within the paired anterior cerebral arteries is normal and symmetric. The flow within the middle cerebral arteries is normal and symmetric. The anterior communicating artery is seen. No aneurysms are seen. Posterior circulation: Visualized portions of the vertebral arteries demonstrate normal caliber, and join to form a normal appearing basilar artery. Flow within the posterior cerebral arteries is normal and symmetric. No aneurysms are seen. NECK CT ANGIOGRAPHY: Carotid system: The great vessels demonstrate a conventional anatomy as they arise from the aortic arch. The origins of the common carotid arteries appear patent. The common carotid arteries demonstrate normal caliber and courses. The bifurcation regions are both widely patent. There is calcification at the origin of the left internal carotid artery with 50-60% stenosis. Calcifications are present at the origin of the right internal carotid artery with stenosis of approximately 60%. In addition, there is calcification at the origin of the right external carotid artery with approximately 60% stenosis. Posterior circulation: The origins of the vertebral arteries both appear widely patent. The more superior extracranial portions of both vertebral arteries also demonstrate normal courses and calibers. They join to form a normal appearing basilar artery. Soft tissues: Visualized neck soft tissues demonstrate no suspicious abnormalities. Bones: No suspicious bony lesions. Visualized cervical spine appears normally aligned. IMPRESSION: 1. No acute intracranial process. 2. Moderate atrophy and chronic microvascular ischemic changes. 3. 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 4. Approximate 60% stenosis at the origin of the right internal carotid artery. 5. Approximate 60% stenosis at the origin the right external carotid artery. Any quantitative measurements of stenosis were performed using NASCET criteria. Dictated by: Maki Torres M.D. on 08/28/2022 at 14:15 Approved by: Maki Torres M.D. on 08/28/2022 at 14:23
[2022-08-28 13:59] LABS: Troponin I < 0.012 ng/mL (0.01-0.034)
== END 2022-08-28 14:57 | disposition home or self-care (01) ==
PROVIDERS: Emergency Provider Emergency Medicine; PCP Internal Medicine
DX: R42 Dizziness and giddiness (principal); R41.82 Altered mental status, unspecified
CPT/HCPCS: 36415; 70496; 70498; 80053; 81003; 82550; 82962; 84484; 85025; 93005; 99284

== ENCOUNTER 2023-06-18 15:09 | Observation (INO) | payer OTHER, SELFPAY ==
[2023-06-18] VITALS (10 sets, daily range): BP systolic 112–162; BP diastolic 68–108; PULSE 77–94; RESP 13–23; TEMP 35.8–37; O2SAT 96–100; BMI 31.5; BMI 31.8
--- NOTE | 2023-06-18 | DI.ECHO.S_ITS ---
[facility] +---------+ [facility] +---------+ : : [address] : [place] [place] : : : : [id number] : : : : Phone: [phone]+ Echocardiogram Report + + :Name: ALISSON CAMPOS Study Date: 06/19/2023 Height: 70 in : :[facility] ReadingLocation: Weight: 220 lb : : Gender: Male BSA: 2.2 m2 : :: 1945 Age: 77 yrs BP: 120/77 mmHg: :Reason For Study: TIA : :Ordering Physician: DOC, : :VIDYA Estevez Performed By: Jade Lake : :Referring: VIDYA ROACH : + + Interpretation Summary The ejection fraction is estimated to be 60-65%. Diastolic parameters suggest probable normal left ventricular diastolic function and normal filling pressures. The right ventricle is normal in size and function. There is mild tricuspid regurgitation. The right ventricular systolic pressure is estimated to be at least 29 mmHg based on an estimated right atrial pressure of 3 mm Hg. Compared to the prior study dated 08/01/2020, no significant change. Procedure: A two-dimensional transthoracic echocardiogram with color flow and Doppler was performed. The study quality was technically adequate. Comparison is made with the echocardiogram of 08/01/2020. The patient was in sinus rhythm with heart rates between 75-80 bpm during the exam. Left Ventricle: The left ventricle is normal in size and wall thickness. The ejection fraction is estimated to be 60-65%. Diastolic parameters suggest probable normal left ventricular diastolic function and normal filling pressures. Right Ventricle: The right ventricle is normal in size and function. Atria: The left atrial size is normal. Right atrial size is normal. There is no Doppler evidence for an interatrial shunt. Mitral Valve: There is mild mitral annular calcification. The mitral valve leaflets appear mildly thickened, but open well. There is trace mitral regurgitation. Aortic Valve: The aortic valve is trileaflet. The aortic valve opens well. There is no aortic valve stenosis. No aortic regurgitation is present. Tricuspid Valve: The tricuspid valve is normal in structure and function. There is mild tricuspid regurgitation. The right ventricular systolic pressure is estimated to be at least 29 mmHg based on an estimated right atrial pressure of 3 mm Hg. Pulmonic Valve: The pulmonic valve leaflets are thin and pliable; valve motion is normal. There is no pulmonic valvular regurgitation. Great Vessels: The aortic root is normal size. The dimensions of the ascending aorta are normal. The IVC is of normal diameter and collapses greater than 50% with a sniff. This suggests a low right atrial pressure of 3 mm Hg. Pericardium/ Pleura There is no pericardial effusion. There is no pleural effusion. MMode/2D Measurements & Calculations LVIDd: 4.4 cm LVOT diam: 2.0 cm LVIDs: 2.8 cm Ao root diam: 3.5 cm FS: 37.1 % asc Aorta Diam: 3.8 cm EPSS: 0.64 cm IVSd: 0.75 cm LVPWd: 0.88 cm LV pradhan. diameter/BSA (cm/m^2): 2.0 LV sys. diameter/BSA (cm/m^2): 1.3 LA A2 area: 15.3 cm2 RA long axis: 5.3 cm LA A4 area: 16.0 cm2 RA area: 15.4 cm2 LA length (vol): 5.1 cm RA vol: 38.0 ml LA vol: 40.6 ml RA : 17.5 ml/m2 LA vol index: 18.7 ml/m2 IVC diam: 1.4 cm RVD1 (basal): 3.6 cm RVD2 (mid): 2.9 cm TAPSE: 2.2 cm Doppler Measurements & Calculations Ao V2 max: 128.0 cm/sec LVOT Max Nick: 124.3 cm/sec Ao V2 mean: 84.6 cm/sec LV V1 max P.2 mmHg Ao max P.6 mmHg LV V1 VTI: 22.2 cm Ao mean P.3 mmHg LATRICIA(I,D): 3.2 cm2 Ao V2 VTI: 21.2 cm LATRICIA(V,D): 3.0 cm2 sev ratio: 1.0 LATRICIA indexed to BSA (cm^2/m^2): 1.5 MV E max nick: 76.3 cm/sec TR max nick: 255.1 cm/sec MV A max nick: 125.2 cm/sec TR max P.0 mmHg MV E/A: 0.61 PA V2 max: 89.7 cm/sec Med Peak E' Nick: 7.4 cm/sec PA V2 mean: 65.9 cm/sec E/E' med: 10.3 PA mean P.9 mmHg Lat Peak E' Nick: 6.3 cm/sec PA pr(Accel): 46.5 mmHg E/E' lat: 12.1 E/e' average: 11.2 MV dec time: 0.23 sec SV(LVOT): 67.7 ml Reading Physician:12:27 PM
--- NOTE | 2023-06-18 15:20 | ED_ITS ---
HPI - Neuro Symptoms/Deficit General Chief Complaint: Neuro Symptoms/Deficit Stated Complaint: HBP, slurring words, not reading right Time Seen by Provider: 06/18/23 15:18 Source: patient Mode of arrival: Ambulatory History of Present Illness HPI Narrative: Patient is a 77-year-old male history of hypertension hyperlipidemia presenting today with slurring of speech and difficulty speaking. Last known well 1445. He reports that he got out a recipe card from delivered meal plan he was trying to rate it. noted that he was not saying the words right she thought he was being funny. They then were looking up symptoms of stroke he was having some slurring of speech at that time as well. He had no facial droop no unilateral weakness or other symptoms. Symptoms lasted for approximately 30 minutes and have self resolved. No chest pain shortness of breath or other symptoms. No prior history of TIA or CVA On Anticoagulants: No Related Data Home Medications Medication Instructions Recorded Confirmed CA PANTOTHENATE/FOLIC ACID/VIT 1 tab PO QDAY ##0 06/20/12 06/18/23 (MULTIVITAMIN) CHOLECALCIFEROL (VITAMIN D) 2,000 units PO QDAY ##0 06/20/12 06/18/23 Fish Oil (FISH OIL~) 2,400 mg PO QDAY ##0 06/20/12 06/18/23 [SUPER B-50 COMPLEX] 1 tab PO QDAY ##0 06/20/12 06/18/23 milk thistle seed extract 175 mg 175 mg PO DAILY Liver health post 05/21/23 06/18/23 capsule Hep-C Previous Rx's Medication Instructions Recorded amlodipine 5 mg tablet 5 mg PO DAILY blood pressure #90 05/21/23 tabs lisinopril 20 mg tablet 20 mg PO DAILY blood pressure #90 05/21/23 tabs rosuvastatin 5 mg tablet 5 mg PO DAILY cholesterol #90 tabs 05/21/23 Allergies Allergy/AdvReac Type Severity Reaction Status Date / Time No Known Drug Allergies Allergy Verified 05/21/23 14:49 Review of Systems Hematologic/Lymphatic On Anticoagulants: No Patient History Medical History Peritonitis Chronic low back pain Left foot drop Osteoarthritis Benign essential HTN Hyperlipidemia Social History household members: spouse Smoking Status: Never smoker Smoking Status: Never smoker tobacco type: vaping alcohol intake frequency: 0-2 drinks per day Substance Use Type: marijuana Exam Initial Vital Signs Initial Vital Signs: Vital Signs Pulse Rate 94 H 06/18/23 15:13 Respiratory Rate 23 06/18/23 15:13 Pulse Oximetry 97 06/18/23 15:13 GENERAL: Alert pleasant 77-year-old male and in [no acute] distress. HEENT: Head atraumatic,EOMI, pupils reactive, face symmetric, [moist] mucous membranes CARDIOVASCULAR: Regular rate and rhythm without murmurs, rubs or gallops. RESPIRATORY: Breath sounds equal bilaterally, no wheezes rales or rhonchi. ABDOMEN: Soft, nontender. Normoactive bowel sounds all 4 quadrants. No guarding or rebound. EXTREMITIES: Normal range of motion, no clubbing or edema. Neurovascularly intact NEUROLOGICAL: Alert and oriented x4.Normal gait and speech. Cranial nerves II through XII grossly intact. [Good [id number], good [id number], strength equal bilaterally, no dysarthria or aphasia, sensation in tact to soft touch bilaterally, no visual changes, no facial droop] SKIN: Warm, dry, no laceration, no petechiae, no rashes or lesions. Scores ABCD2 Age >= 60 years: yes Initial BP. Either SBP >= 140 or DBP >= 90.: yes Clinical features of the TIA: speech disturbance without weakness Duration of symptoms: 10-59 minutes History of diabetes: no ABCD2 Score: 4 NIH Stroke Scale Level of Conciousness: Alert, keenly responsive Ask month/age: Answers both questions correctly. Open/close eyes, close hand: Performs both tasks correctly Best gaze horizontal: Normal Visual odom: No visual loss Facial palsy: Normal symetrical movement Left arm drift: No drift for full 10 sec Right arm drift: No drift for full 10 sec Left leg drift: No drift for full 5 sec Right leg drift: No drift for full 5 sec Limb ataxia: Absent Sensory on face/arms/legs: Normal, no sensory loss Best language: No aphasia, normal Dysarthria: Normal Extinction or inattention: No abnormality Total NIH Stroke scale score: 0 Course Orders Ordered: ED Orders 06/18/23 15:19 Complete Blood Count AUTO DIFF Stat Comprehensive Metabolic Panel Stat Ethanol (ETOH) Stat PTT Partial Thromboplastin Jacinto Stat Prothrombin Time INR Stat Troponin & CK Cardiac Panel Stat 06/18/23 15:21 CT angio head and neck Stat CT head/brain wo con Stat 06/18/23 15:25 EKG-12 Lead Stat 06/18/23 16:03 Urinalysis and Microscopic Stat Urine Drug Screen, Rapid Stat 06/18/23 19:00 COVID19 -Nasal RAPID Stat Acetaminophen (Acetaminophen 325 Mg Tablet) 650 mg PO Q6H PRN PRN Reason: Fever/Mild Pain (1-3) Aspirin (Aspirin Ec 81 Mg Tablet) 81 mg PO DAILY NATASHA Atorvastatin Calcium (Atorvastatin 20 Mg Tablet) 80 mg PO BEDTIME NATASHA Clopidogrel Bisulfate (Clopidogrel 75 Mg Tablet) 75 mg PO DAILY [facility] Heparin Sodium (Porcine) (Heparin 5,000 Unit/Ml Vial) 5,000 unit SUBCUT BID NATASHA Naloxone HCl (Naloxone 0.4 Mg/Ml Vial) 0.2 mg IV Q2MIN PRN PRN Reason: Opiate Reversal Ondansetron HCl (Ondansetron 4 Mg/2 Ml Inj) 4 mg IV Q8HR PRN PRN Reason: Nausea And Vomiting Discontinued Medications Aspirin (Aspirin 81 Mg Chew Tab) 324 mg PO NOW ONE Stop: 06/18/23 16:31 Last Admin: 06/18/23 16:39 Dose: 324 mg Documented By: BREA Clopidogrel Bisulfate (Clopidogrel 75 Mg Tablet) 300 mg PO NOW ONE Stop: 06/18/23 17:38 Last Admin: 06/18/23 18:55 Dose: 300 mg Documented By: CLP Vital Signs Vital signs: Vital Signs - 8 hr 06/18/23 15:13 06/18/23 15:14 06/18/23 15:14 Temperature Pulse Rate 94 H 90 Respiratory Rate 23 21 Blood Pressure 162/106 H Pulse Oximetry 97 100 Oxygen Delivery Method 06/18/23 15:17 06/18/23 15:30 06/18/23 15:34 Temperature 98 F Pulse Rate 90 87 84 Respiratory Rate 16 13 Blood Pressure 162/108 H Pulse Oximetry 98 99 100 Oxygen Delivery Method Room Air 06/18/23 15:34 06/18/23 16:02 06/18/23 16:02 Temperature Pulse Rate 89 Respiratory Rate 19 Blood Pressure 130/82 143/92 H Pulse Oximetry 97 Oxygen Delivery Method 06/18/23 16:30 01/23/24 16:30 Temperature Pulse Rate 78 Respiratory Rate 17 Blood Pressure 155/86 H Pulse Oximetry 98 Oxygen Delivery Method MDM - Neuro Symptoms/Deficit Lab Data 06/18/23 15:19 06/18/23 15:19 Labs: Lab Results 06/18/23 06/18/23 06/18/23 Range/Units 15:19 16:03 16:03 WBC 6.2 (4.5-11.0) X10^3/uL RBC 4.74 (4.5-5.9) X10^6/uL Hgb 14.2 (13.5-17.5) g/dL Hct 41.5 (41-53) % MCV 87.6 (80-100) fL MCH 30.0 (26-34) PG MCHC 34.2 (30-36) % RDW 13.0 (11.6-14.8) % Plt Count 226 (150-400) X10^3/uL Neut % (Auto) 62.2 (50-75) % Lymph % (Auto) 25.5 (25-40) % Delta % (Auto) 10.9 (3-14) % Eos % (Auto) 1.1 L (2-4) % Baso % (Auto) 0.3 (0-2) % Neut # (Auto) 3800 (7219-1811) /uL Lymph # (Auto) 1600 (4934-6569) /uL Delta # (Auto) 700 (0-900) /uL Eos # (Auto) 100 (0-450) /uL Baso # (Auto) 0 (0-100) /uL PT 12.3 (9.4-12.5) SECONDS INR 1.1 (0.9-1.3) APTT 33 (25.1-36.5) SECONDS Sodium 137 (137-145) mmol/L Potassium 3.8 (3.4-5.1) mmol/L Chloride 100 (98-107) mmol/L Carbon Dioxide 25 (22-32) mmol/L BUN 13 (9-20) mg/dL Creatinine 0.82 (0.66-1.25) mg/dL Estimated GFR > 60 (>60) mL/min BUN/Creatinine Ratio 15.9 (6-22) Glucose 93 (80-110) mg/dL Calcium 10.1 (8.4-10.2) mg/dL Total Bilirubin 0.6 (0.2-1.3) mg/dL AST 29 (17-59) IU/L ALT 22 (<50) IU/L Alkaline Phosphatase 54 (38-126) U/L Total Creatine Kinase 148 (55-170) U/L Troponin I < 0.012 (0.01-0.034) ng/mL Total Protein 8.1 (6.3-8.2) g/dL Albumin 4.6 (3.5-5.0) g/dL Globulin 3.5 (1.7-4.1) g/dL Albumin/Globulin Ratio 1.3 (1.0-2.8) Urine Color Yellow Urine Appearance Clear Urine pH 7.0 Normal (4.5-8.0) Ur Specific Garvin <=1.005 (1.000-1.035) Urine Protein Negative (Negative) Urine Glucose (UA) Negative (Negative) g/dL Urine Ketones Negative (NEGATIVE) Urine Occult Blood Negative (Negative) Urine Nitrate Negative (Negative) Urine Bilirubin Negative (NEGATIVE) Urine Urobilinogen 0.2 (0.2) E.U./dL Ur Leukocyte Esterase Negative (NEGATIVE) Urine RBC None seen (0-5/HPF) Urine WBC None seen (0-5/HPF) Ur Squamous Epith Cells 0-1 /hpf (0-5/HPF) Urine Bacteria None seen (None) Ur Culture Indicated? Cult not indicated Vol Urine Centrifuged 10ml (spun) U Opiates 300ng/mL cut Negative (Negative) Ur Oxycodone Screen Negative (Negative) Urine Methadone Screen Negative (Negative) Ur Barbiturates Screen Negative (Negative) U Tricyclic Antidepress Negative (Negative) Ur Phencyclidine Scrn Negative (Negative) Ur Amphetamines Screen Negative (Negative) U Methamphetamines Scrn Negative (Negative) Ur MDMA Scrn (Ecstasy) Negative (Negative) U Benzodiazepines Scrn Negative (Negative) Urine Cocaine Screen Negative (Negative) U Marijuana (THC) Screen Positive H (Negative) Urine Specific Garvin Normal (Normal) Ethyl Alcohol < 10 ( - 10) mg/dL Ur Creatinine Normal (Normal) Point of Care Testing Glucose POC 86 Urine Dip Bedside Urine Glucose Negative Bedside Urine Bilirubin - Negative Bedside Urine Ketone - Negative Urine Specific Garvin 1.010 Bedside Urine Occult Blood - Negative Bedside Urine pH 7.0 Bedside Urine Protein - Negative Bedside Urine Urobilinogen - Negative Bedside Urine Nitrite - Negative Bedside Urine Leukocytes - Negative Esterase Imaging Data CT scan - head: Radiologist's Impression: PROCEDURE: CT HEAD/BRAIN WO CON INDICATIONS: slurring speech resolved TECHNIQUE: Noncontrast 4.5 mm thick angled axial sections acquired from the foramen magnum to the vertex, with coronal and sagittal reformats. For radiation dose reduction, the following was used: automated exposure control, adjustment of mA and/or kV according to patient size. COMPARISON: None. FINDINGS: Image quality: Diagnostic. CSF spaces: Basal cisterns are patent. No extra-axial fluid collections. The ventricles are symmetric in size and shape. Brain: No intracranial bleeds or masses. There is cerebral volume loss for age, with resultant ventricular and sulcal prominence. There are periventricular and deep white matter chronic small vessel ischemic changes. There is intracranial internal carotid artery atherosclerosis. Skull and face: Calvarium and visualized facial bones appear intact, without suspicious lesions. Sinuses: Visualized sinuses and mastoids are clear. IMPRESSION: No acute intracranial pathology. Dictated by: John Wilhelm M.D. on 06/18/2023 at 15:51 CTA - brain/neck: Radiologist's Impression: PROCEDURE: CT ANGIO HEAD AND NECK INDICATIONS: slurring speech resolved TECHNIQUE: After the administration of intravenous contrast, 1 mm thick sections acquired from the aortic arch through the [place] of [place]. 3-dimensional kbmdzuy-gpxnurwbk-bzwlgnlwxy (MIP) and/or volume rendering reformats were acquired of the central intracranial vasculature and neck separately. For radiation dose reduction, the following was used: automated exposure control, adjustment of mA and/or kV according to patient size. COMPARISON: [facility], CT, CT ANGIO HEAD AND NECK, 08/28/2022, 13:39. FINDINGS: Image quality: Degraded by metallic artifact. BRAIN: CSF spaces: Ventricles are normal in size and shape. Basal cisterns are patent. No extra-axial fluid collections. Brain: No significant abnormality of the brain can be seen. Skull and face: Calvarium and facial bones appear intact, without suspicious lesions. Orbits appear normal. Sinuses: Sinuses and mastoids are clear. HEAD CT ANGIOGRAPHY: Anterior circulation: Moderate calcific plaque causes mild to moderate diffuse stenosis of the cavernous segments of the internal carotid arteries bilaterally. The flow within the paired anterior cerebral arteries is normal and symmetric. The flow within the middle cerebral arteries is normal and symmetric. The anterior communicating artery is seen. No aneurysms are seen. Posterior circulation: Visualized portions of the vertebral arteries demonstrate normal caliber, and join to form a normal appearing basilar artery. Flow within the posterior cerebral arteries is normal and symmetric. No aneurysms are seen. NECK CT ANGIOGRAPHY: Carotid system: The great vessels demonstrate a conventional anatomy as they arise from the aortic arch. Roughly 30% calcific origin stenosis of the innominate and left common carotid arteries. Roughly 60% calcific origin stenosis of the left subclavian artery.. The common carotid arteries demonstrate normal caliber and courses. High-grade, roughly 80% origin stenosis of the right internal carotid artery. Roughly 60% origin stenosis of the left internal carotid artery. Posterior circulation: High-grade calcific origin stenosis of the bilateral vertebral arteries. The more superior extracranial portions of both vertebral arteries also demonstrate normal courses and calibers. They join to form a normal appearing basilar artery. Soft tissues: Visualized neck soft tissues demonstrate no suspicious abnormalities. Moderate apically emphysema is present. Bones: No suspicious bony lesions. Visualized cervical spine appears normally aligned. IMPRESSION: 1. No acute process involving the arterial tree of the head and neck. 2. Anterior and posterior circulation stenoses as described above. 3. Emphysema. Any quantitative measurements of stenosis were performed using NASCET criteria. Dictated by: John Wilhelm M.D. on 06/18/2023 at 15:56 ECG Data Interpretation: Sinus rhythm rate 82 OK interval 252 QRS 146 QTC 41 right bundle-branch block noted no ST changes MDM Narrative Medical decision making narrative: Patient 77-year-old male history of hypertension hyperlipidemia presenting today with aphasia and dysarthria. Symptoms lasted for under 30 minutes and completely resolved. He has not a candidate for tPA. He is NIH stroke scale of 0 and an ABCD2 score of 4. Blood Work has been reviewed, he is positive for marijuana in his drug screen Imaging reviewed head CT CT angio do not show any acute stroke Patient is given aspirin Dr. Finch updated test results and agrees with observation Discharge Plan Departure Patient Disposition: Admitted as Observation Clinical Impression: Brain TIA Admit Date/Time: 06/18/23 16:40 Admit Provider: Dhaval Finch
[2023-06-18 15:48] LABS: Add Manual Diff / Slide Review NO; Basophils Absolute Auto 0 /uL (0-100); Basophils Percent Auto 0.3 % (0-2); Eosinophils Absolute Auto 100 /uL (0-450); Eosinophils Percent Auto 1.1 % (2-4); Hematocrit 41.5 % (41-53); Hemoglobin 14.2 g/dL (13.5-17.5); Lymphocytes Absolute Auto 1600 /uL (1100-4500); Lymphocytes Percent Auto 25.5 % (25-40); Mean Corpuscular HGB Conc 34.2 % (30-36); Mean Corpuscular Volume 87.6 fL (80-100); Monocytes Absolute Auto 700 /uL (0-900); Monocytes Percent Auto 10.9 % (3-14); Neutrophils Absolute Auto 3800 /uL (1500-7000); Neutrophils Percent Auto 62.2 % (50-75); Platelet Count 226 X10^3/uL (150-400); Red Blood Cell Count 4.74 X10^6/uL (4.5-5.9); White Blood Cell Count 6.2 X10^3/uL (4.5-11.0)
[2023-06-18 15:56] LABS: INR 1.1 (0.9-1.3); Prothrombin Time 12.3 SECONDS (9.4-12.5)
[2023-06-18 15:59] LABS: PTT Partial Thromboplastin Tim 33 SECONDS (25.1-36.5)
[2023-06-18 16:06] LABS: Alanine Aminotransferase 22 IU/L (<50); Albumin 4.6 g/dL (3.5-5.0); Albumin Globulin Ratio 1.3 (1.0-2.8); Alkaline Phosphatase 54 U/L (38-126); Aspartate Aminotransferase 29 IU/L (17-59); BUN Creatinine Ratio 15.9 (6-22); Bilirubin Total 0.6 mg/dL (0.2-1.3); Blood Urea Nitrogen 13 mg/dL (9-20); Calcium 10.1 mg/dL (8.4-10.2); Carbon Dioxide 25 mmol/L (22-32); Chloride 100 mmol/L (98-107); Creatine Kinase 148 U/L (55-170); Estimated Glomerular Filt Rate > 60 mL/min (>60); Ethanol (ETOH) < 10 mg/dL; Globulin 3.5 g/dL (1.7-4.1); Glucose 93 mg/dL (80-110); HEMOLYSIS < 15 (0-50); Potassium 3.8 mmol/L (3.4-5.1); Sodium 137 mmol/L (137-145); Total Protein 8.1 g/dL (6.3-8.2)
[2023-06-18 16:14] LABS: Urine Volume 10mL (spun)
[2023-06-18 16:17] LABS: Troponin I < 0.012 ng/mL (0.01-0.034)
[2023-06-18 16:20] LABS: Appearance Urine UA CLEAR; Bilirubin Urine UA NEGATIVE (NEGATIVE); Color Urine UA YELLOW; Glucose Urine UA NEGATIVE (Negative); Ketones Urine UA NEGATIVE (NEGATIVE); Leukocyte Esterase Urine UA NEGATIVE (NEGATIVE); Nitrite Urine UA NEGATIVE (Negative); Occult Blood Urine UA NEGATIVE (Negative); Protein Urine UA NEGATIVE (Negative); Specific Gravity Urine UA <=1.005 (1.000-1.035); Urobilinogen Urine UA 0.2 E.U./dL (0.2)
[2023-06-18 16:28] LABS: Ur Creatinine Normal (Normal); Ur Specific Gravity Normal (Normal); Urine pH Normal (Normal)
[2023-06-18 16:29] LABS: UR Morphine/Opiate cutoff 300 Negative (Negative); Urine Amphetamines Negative (Negative); Urine Barbiturates Negative (Negative); Urine Benzodiazepines Negative (Negative); Urine Cocaine Negative (Negative); Urine MDMA Negative (Negative); Urine Methadone Negative (Negative); Urine Methamphetamines Negative (Negative); Urine Oxycodone Negative (Negative); Urine Phencyclidine Negative (Negative); Urine Tetrahydrocannabinol Positive (Negative); Urine Tricyclic Antidepressant Negative (Negative)
[2023-06-18 16:34] LABS: Bacteria Urine None Seen; Culture Indicated Urine Cult Not Indicated; RBC Urine None Seen (0-5/HPF); Squamous Epithelial Cell Urine 0-1 /HPF (0-5/HPF); WBC Urine None Seen (0-5/HPF)
[2023-06-18] MEDS: ASPIRIN 81 MG CHEW TAB 324 MG PO (16:39)
--- NOTE | 2023-06-18 16:50 | PM.HP.1 ---
History of Present Illness History of Present Illness Date Patient Seen: 06/18/23 Time Patient Seen: 16:50 Date of Onset of Symptoms: 06/18/23 Chief complaint: HBP, slurring words, not reading right Narrative: The patient is a 77-year-old male with a history of hypertension and hyperlipidemia who presented with transient neurologic symptoms of word salad, slurred speech and difficulty speaking. His symptoms began at approximately 2:45 p.m. and lasted approximately 30 minutes. The patient was trying to read a recipe card from a meal plan. noted he was not speaking properly. They then called for help. The patient had no facial droop or arm or leg weakness noted. Upon arrival to the ED his symptoms had resolved. He has no previous history of TIA or stroke. In the emergency department his blood pressure was 143 systolic. His age is 72. Symtpoms lasted 30 min. He has a chronic left foot drop and wears a foot brace. This has been ongoing for several years and relates to chronic back problems and back surgery. CTA did indicate no evidence of stroke or bleed. There was diffuse evidence of cerebrovascular disease noted. He also had up to 60% stenosis on the left carotid. He is left-handed. He does note a remote history of smoking having quit about 20 years ago. He has about 20 pack years of tobacco use. He is adopted and unsure of a family history of stroke. ABCD2 score: 4, high risk TIA. NIH score: 0 No headache. ON LICENSE OF [facility] Medical History Peritonitis Chronic low back pain Left foot drop Osteoarthritis Benign essential HTN Hyperlipidemia Social History household members: spouse Smoking Status: Never smoker Meds Home Medications and Allergies Home Medications Medication Instructions Recorded Confirmed Type CA PANTOTHENATE/FOLIC ACID/VIT 1 tab PO QDAY ##0 06/20/12 06/18/23 History (MULTIVITAMIN) CHOLECALCIFEROL (VITAMIN D) 2,000 units PO QDAY ##0 06/20/12 06/18/23 History Fish Oil (FISH OIL~) 2,400 mg PO QDAY ##0 06/20/12 06/18/23 History [SUPER B-50 COMPLEX] 1 tab PO QDAY ##0 06/20/12 06/18/23 History amlodipine 5 mg tablet 5 mg PO DAILY blood pressure #90 05/21/23 06/18/23 Rx tabs lisinopril 20 mg tablet 20 mg PO DAILY blood pressure #90 05/21/23 06/18/23 Rx tabs milk thistle seed extract 175 mg 175 mg PO DAILY Liver health post 05/21/23 06/18/23 History capsule Hep-C rosuvastatin 5 mg tablet 5 mg PO DAILY cholesterol #90 tabs 05/21/23 06/18/23 Rx Allergies Allergy/AdvReac Type Severity Reaction Status Date / Time No Known Drug Allergies Allergy Verified 05/21/23 14:49 Review of Systems Review of Systems Narrative: All else reviewed and otherwise unremarkable except as noted in the history and physical. Exam Vital Signs (past 8 hours): - 06/18/23 15:13 06/18/23 15:14 06/18/23 15:14 Temperature Pulse Rate 94 H 90 Respiratory Rate 23 21 Blood Pressure 162/106 H Pulse Oximetry 97 100 Oxygen Delivery Method 06/18/23 15:17 06/18/23 15:30 06/18/23 15:34 Temperature 98 F Pulse Rate 90 87 84 Respiratory Rate 16 13 Blood Pressure 162/108 H Pulse Oximetry 98 99 100 Oxygen Delivery Method Room Air 06/18/23 15:34 06/18/23 16:02 06/18/23 16:02 Temperature Pulse Rate 89 Respiratory Rate 19 Blood Pressure 130/82 143/92 H Pulse Oximetry 97 Oxygen Delivery Method Oxygen Delivery Method Room Air Narrative Exam Narrative: NAD, oriented, fluent and normal speech. Normal skull, normal nose and ears No facial droop EOMI, Conjugate gaze, and anicteric sclera Neck supple, midline trachea and no adenopathy. Lungs clear, normal rate and effort CV regular without murmur. Abdomen soft and NT No leg edema. Good pedal pulses. Neuro: CN all intact MS 5/5 all extremities Negative pronator drift Normal speech, judgement, and affect. Normal LALITHA. Chronic LEFT FOOT DROP Objective ECG Impression: NSR Imaging CT scan - head: Radiologist's impression: CT brain: negative. HEAD CT ANGIOGRAPHY: Anterior circulation: Moderate calcific plaque causes mild to moderate diffuse stenosis of the cavernous segments of the internal carotid arteries bilaterally. The flow within the paired anterior cerebral arteries is normal and symmetric. The flow within the middle cerebral arteries is normal and symmetric. The anterior communicating artery is seen. No aneurysms are seen. Posterior circulation: Visualized portions of the vertebral arteries demonstrate normal caliber, and join to form a normal appearing basilar artery. Flow within the posterior cerebral arteries is normal and symmetric. No aneurysms are seen. NECK CT ANGIOGRAPHY: Carotid system: The great vessels demonstrate a conventional anatomy as they arise from the aortic arch. Roughly 30% calcific origin stenosis of the innominate and left common carotid arteries. Roughly 60% calcific origin stenosis of the left subclavian artery.. The common carotid arteries demonstrate normal caliber and courses. High-grade, roughly 80% origin stenosis of the right internal carotid artery. Roughly 60% origin stenosis of the left internal carotid artery. Posterior circulation: High-grade calcific origin stenosis of the bilateral vertebral arteries. The more superior extracranial portions of both vertebral arteries also demonstrate normal courses and calibers. They join to form a normal appearing basilar artery. Soft tissues: Visualized neck soft tissues demonstrate no suspicious abnormalities. Moderate apically emphysema is present. Bones: No suspicious bony lesions. Visualized cervical spine appears normally aligned. IMPRESSION: 1. No acute process involving the arterial tree of the head and neck. 2. Anterior and posterior circulation stenoses as described above. 3. Emphysema. Labs 06/18/23 15:19 06/18/23 15:19 Labs: Laboratory Results - last 24 hr 06/18/23 06/18/23 06/18/23 15:19 16:03 16:03 WBC 6.2 RBC 4.74 Hgb 14.2 Hct 41.5 MCV 87.6 MCH 30.0 MCHC 34.2 RDW 13.0 Plt Count 226 Neut % (Auto) 62.2 Lymph % (Auto) 25.5 [place] % (Auto) 10.9 Eos % (Auto) 1.1 L Baso % (Auto) 0.3 Neut # (Auto) 3800 Lymph # (Auto) 1600 [place] # (Auto) 700 Eos # (Auto) 100 Baso # (Auto) 0 PT 12.3 INR 1.1 APTT 33 Sodium 137 Potassium 3.8 Chloride 100 Carbon Dioxide 25 BUN 13 Creatinine 0.82 Estimated GFR > 60 BUN/Creatinine Ratio 15.9 Glucose 93 Calcium 10.1 Total Bilirubin 0.6 AST 29 ALT 22 Alkaline Phosphatase 54 Total Creatine Kinase 148 Troponin I < 0.012 Total Protein 8.1 Albumin 4.6 Globulin 3.5 Albumin/Globulin Ratio 1.3 Urine Color Yellow Urine Appearance Clear Urine pH 7.0 Normal Ur Specific [place] <=1.005 Urine Protein Negative Urine Glucose (UA) Negative Urine Ketones Negative Urine Occult Blood Negative Urine Nitrate Negative Urine Bilirubin Negative Urine Urobilinogen 0.2 Ur Leukocyte Esterase Negative Urine RBC None seen Urine WBC None seen Ur Squamous Epith Cells 0-1 /hpf Urine Bacteria None seen Ur Culture Indicated? Cult not indicated Vol Urine Centrifuged 10ml (spun) U Opiates 300ng/mL cut Negative Ur Oxycodone Screen Negative Urine Methadone Screen Negative Ur Barbiturates Screen Negative U Tricyclic Antidepress Negative Ur Phencyclidine Scrn Negative Ur Amphetamines Screen Negative U Methamphetamines Scrn Negative Ur MDMA Scrn (Ecstasy) Negative U Benzodiazepines Scrn Negative Urine Cocaine Screen Negative U Marijuana (THC) Screen Positive H Urine Specific [place] Normal Ethyl Alcohol < 10 Ur Creatinine Normal Assessment & Plan Assessment & Plan narrative: 1. High risk TIA with isolated speech difficulties, present on admission and resolved. 2. Cerebral vascular disease, present on admission and active. 3. Hypertension, present on admission and active. 4. HLD, present on admission and active. Plan: Plavix load and DAPT for 21 days. PT and OT eval Permissive hypertension. Discuss with neurology prior to discharge. Time Spent With Patient Time with patient: 30 to 49 minutes with 50% spent counseling/coordinating care Quality MIPS - Admit I confirm the patient?s Advance Care Plan is present, Code status is documented, Surrogate decision maker is in patient?s record [If Yes, STOP here]: Yes MIPS - Meds 'Current medications' to include all prescriptions, [id number] products, herbals, cannabis/cannabidiol products, and vitamin/mineral/dietary (nutritional) supplements. I have utilized all available resources to obtain, update, or review the patient?s current medications. [If Yes, STOP here]: Yes
--- NOTE | 2023-06-18 17:35 | DI.MRI.S_ITS ---
PROCEDURE: MR HEAD/BRAIN WO CON INDICATIONS: TIA TECHNIQUE: Non-contrast axial T1 spin echo, axial T2 fast spin echo, sagittal and axial FLAIR, coronal T2 fast spin echo, axial gradient echo, axial diffusion and ADC through the brain. COMPARISON: [facility], CT, CT HEAD/BRAIN WO CON, 06/18/2023, 15:28. [facility], CT, CT ANGIO HEAD AND NECK, 06/18/2023, 15:28. [facility], MR, MR BRAIN (IAC) WWO CON, 12/19/2020, 12:13. FINDINGS: Image quality: Excellent. CSF spaces: Ventricles appear symmetric in size and shape. Basal cisterns are patent. No extra-axial fluid collections. Brain: No intracranial bleeds or mass effects. Relatively prominent generalized brain parenchymal volume loss can be seen. There are periventricular and deep white matter chronic small vessel ischemic changes. Brainstem appears normal. Diffusion-weighted images show no acute infarct. No chronic ischemic insults. Normal intravascular flow voids are present. Skull and face: Calvarial bone marrow is normal in signal. Orbits are normal. Sinuses: Sinuses and mastoids are clear. IMPRESSION: No findings of acute or subacute infarction can be seen. Relatively prominent brain parenchymal volume loss is noted. Dictated by: Moreno Estrada M.D. on 06/18/2023 at 17:50 Approved by: Moreno Estrada M.D. on 06/18/2023 at 17:51
[2023-06-18] MEDS: CLOPIDOGREL 75 MG TABLET 300 MG PO (18:55)
[2023-06-18 19:22] LABS: COVID19 -Nasal RAPID Negative (Negative)
[2023-06-18 19:26] LABS: Hemoglobin A1C% w Est Avg Glu 5.6 % (4.0-6.0)
[2023-06-18] MEDS: ATORVASTATIN 20 MG TABLET 80 MG PO (20:44)
[2023-06-18] MEDS: HEPARIN 5,000 UNIT/ML VIAL 5000 UNIT SUBCUT (20:44)
--- NOTE | 2023-06-19 | DI.US.S_ITS ---
PROCEDURE: US CAROTID DOPPLER BI INDICATIONS: TIA TECHNIQUE: Color and pulse Doppler interrogation was performed of both carotid systems, with image documentation and velocity measurements. COMPARISON: None. FINDINGS: Stenosis calculations are based on SRU (Society of Radiologists in Ultrasound) criteria. Right side: Brachial blood pressure: 135/92 mm Hg. Common carotid artery peak systolic velocity: 91 cm/sec. Internal carotid artery peak systolic velocity: 117 cm/sec. Internal carotid artery end diastolic velocity: 32 cm/sec. External carotid artery peak systolic velocity: 137 cm/sec. ICA/CCA peak systolic ratio: 1.3. Cruz scale imaging description: Dense atheromatous calcification is present at the carotid bifurcation. Percent internal carotid artery stenosis: Less than 50%. Vertebral artery: Flow direction is antegrade. There is a bifid bunny years waveform pattern. Left side: Brachial blood pressure: 147/87 mm Hg. Common carotid artery peak systolic velocity: 90 cm/sec. Internal carotid artery peak systolic velocity: 111 cm/sec. Internal carotid artery end diastolic velocity: 30 cm/sec. External carotid artery peak systolic velocity: 55 cm/sec. ICA/CCA peak systolic ratio: 1.2. Cruz scale imaging description: Atheromatous plaque is present at the carotid bifurcation. Percent internal carotid artery stenosis: Less than 50% stenosis. . Vertebral artery: Flow direction is antegrade. IMPRESSION: 1. Left than 50% stenosis of the bilateral internal carotid arteries. 2. Abnormal right vertebral artery waveforms. This pattern can be associated with occult or early subclavian steal syndrome. Dictated by: Pily Malone M.D. on 06/19/2023 at 9:28 Approved by: Pily Malone M.D. on 06/19/2023 at 10:14
[2023-06-19 04:00] VITALS: BP 120/77; PULSE 74; RESP 16; TEMP 37.1; O2SAT 94
[2023-06-19 05:43] LABS: Add Manual Diff / Slide Review NO; Basophils Absolute Auto 0 /uL (0-100); Basophils Percent Auto 0.6 % (0-2); Eosinophils Absolute Auto 100 /uL (0-450); Eosinophils Percent Auto 3.1 % (2-4); Hematocrit 38.8 % (41-53); Hemoglobin 13.4 g/dL (13.5-17.5); Lymphocytes Absolute Auto 1300 /uL (1100-4500); Lymphocytes Percent Auto 33.7 % (25-40); Mean Corpuscular HGB Conc 34.6 % (30-36); Mean Corpuscular Volume 86.5 fL (80-100); Monocytes Absolute Auto 600 /uL (0-900); Monocytes Percent Auto 14.7 % (3-14); Neutrophils Absolute Auto 1900 /uL (1500-7000); Neutrophils Percent Auto 47.9 % (50-75); Platelet Count 204 X10^3/uL (150-400); Red Blood Cell Count 4.49 X10^6/uL (4.5-5.9); Red Cell Distribution Width 12.9 % (11.6-14.8); White Blood Cell Count 3.9 X10^3/uL (4.5-11.0)
[2023-06-19 05:59] LABS: BUN Creatinine Ratio 16.4 (6-22); Blood Urea Nitrogen 12 mg/dL (9-20); Calcium 9.6 mg/dL (8.4-10.2); Carbon Dioxide 24 mmol/L (22-32); Chloride 105 mmol/L (98-107); Estimated Glomerular Filt Rate > 60 mL/min (>60); Glucose 101 mg/dL (80-110); HEMOLYSIS < 15 (0-50); Potassium 3.9 mmol/L (3.4-5.1); Sodium 136 mmol/L (137-145)
[2023-06-19 08:00] VITALS: BP 141/89; BP 147/87; PULSE 74; PULSE 76; RESP 16; RESP 20; TEMP 36.1; O2SAT 97
--- NOTE | 2023-06-19 09:30 | PT.IIE ---
Medical History (Last Reviewed 06/19/23 @ 12:46 by Dhaval Finch MD) Benign essential HTN Chronic low back pain Hyperlipidemia Left foot drop Osteoarthritis Peritonitis Physical Therapy Inpatient Evaluation/Re-Eval M1 PT/OT-IP Prior Functional Status Start: 06/19/23 12:47 Freq: NEEDED Status: Active Protocol: Document 06/19/23 09:30 AB (Rec: 06/19/23 13:01 AB [id number]) Medical Review Prior Functional Status Medical History Reviewed Yes Communication able to make needs known Mobility and Gait pt stated that he was modified indpeendent with all mobilities and ambulation using a SPC but occasionally ambulates without AD indoors but tends to furniture cruise. pt uses an AFO for his L foot drop (stated that this was due to his back) Social History Household Members spouse Living Arrangements House Number of Floors (Floors) One Floor Number of Stairs To Enter/Railing? one step to enter Home Environment High Toilet,Walk in Shower, Built-In Shower Seat Home Equipment Straight Cane,Hand Held Shower ,Grab Bars Near Toilet Additional Social History Comment pt has an adjustable bed M2 PT-IP Current Condition Start: 06/19/23 12:47 Freq: NEEDED Status: Active Protocol: Document 06/19/23 09:30 AB (Rec: 06/19/23 13:01 AB [id number]) Physical Therapy Current Condition Current Condition Evaluation Date 06/19/23 Treatment Diagnosis brain TIA; difficulty in walking Onset Date 06/18/23 M3 PT-IP Subjective Start: 06/19/23 12:47 Freq: NEEDED Status: Active Protocol: Document 06/19/23 09:30 AB (Rec: 06/19/23 13:01 AB [id number]) Subjective Physical Therapy Visit Type Type Initial Evaluation Visit Start Time 09:30 Visit Stop Time 20:00 Number of INTERNET DATABASE SPECIALIST Visits 0 Physical Therapy Visit Comments Patient Comments agreeable to do PT Therapy Pain Assessment Pain Present Pain Present Denied Pain M4 PT-IP Mobility and Gait Start: 06/19/23 12:47 Freq: NEEDED Status: Active Protocol: Document 06/19/23 09:30 AB (Rec: 06/19/23 13:01 AB [id number]) PT-Bed Mobility Assessment Supine to Sit Supine to Sit Independent Sit to Supine Sit to Supine Independent PT-Transfer Assessment Sit to and From Stand Sit to and from Stand Independent Equipment Transfer Assistive Device None,Gait Belt Orthotic/Prosthetic Devices or Brace: No Comments Mobility Comments pt supine in bed and agreeable to do PT. obtained PLOF and home set up. BP in supine: 144/90. completed supine to sit independent. able to sit on EOB SBA. completed sit to stand SBA and ambulated in room using SPC SBA ~ 40 ft. pt opted not to put his AFO at this time and stated that he sometimes ambulates without only for short distances. pt aware and able to lift LLE higher to clear off the floor to compensate for his foot drop if ambulating without AFO . pt sat on the chair. agreed to do stairs. completed up/down step stool using R SPC and wall on L SBA. pt agreed to stay up on the chair. positioned o n the chair. call light and table placed within reach. pt stated that he feels like he is back to his PLOF. informed pt that not PT needs at this time and pt agreed. Gait Assessment Gait Gait Assistance Required: Standby Assistance Distance (Feet) 40 Able to Maintain Weight Bearing Status Yes During Gait Assistive Devices Assistive Device Gait Belt,Straight Cane Orthotic/Prosthetic Devices or Brace: No Gait Deviations General Gait Pattern Step-to Gait Factors Limiting Gait Function Factors Limiting Gait Function Abnormal Tonal Influences, Decreased Activity Tolerance, Decreased Strength,Poor Balance Stair Climbing Assessment Evaluation Level of Assist On Stairs Standby Assistance PT-Balance Assessment Sitting Balance and Reactions Static Sitting Balance Ability Normal Dynamic Sitting Balance Ability Normal Standing Balance and Reactions Static Standing Balance Ability Good Dynamic Standing Balance Ability Fair Device Used SPC M5 PT-IP Objective Assessments Start: 06/19/23 12:47 Freq: NEEDED Status: Active Protocol: Document 06/19/23 09:30 AB (Rec: 06/19/23 13:01 AB [id number]) Orientation Orientation/Cognition Level of Alertness Alert Orientation Name,Age,Birthday,Month,Date, Year,Day of Week,Place, Situation Language Function Ability No Deficits Noted Safety Awareness Understands Safety Issues Memory Description No Deficits Noted Gross Range of Motion Lower Extremity ROM Assessment Within Functional Limits Strength Lower Extremity Strength Assessment Left Impaired Ankle L foot drop M6 PT-IP Treatment Start: 06/19/23 12:47 Freq: NEEDED Status: Active Protocol: Document 06/19/23 09:30 AB (Rec: 06/19/23 13:01 [id number]) Physical Therapy Treatment Education Education Provided Safety M7 PT-IP Assessment and Plan Start: 06/19/23 12:47 Freq: NEEDED Status: Active Protocol: Document 06/19/23 09:30 (Rec: 06/19/23 13:01 [id number]) PT Summary Assessment and Plan Potential Rehabilitation Potential Fair Summary Progress Towards Goals Safe For Discharge Assessment Summary Pt is a 77 y/o M who presented to the ED due to slurred speech. pt admitted for brain TIA. PT eval completed and pt is at [facility]. provided SBA for pt for mobility for safety but is safe to d/c home and has his spouse to assist him if needed. Frequency of Treatment Frequency Of Treatment Discharge Recommendations To Nursing Amount of Assist Needed Standby Assistance Discharge Recommendations Transportation Needs at Discharge Private Vehicle
[2023-06-19] MEDS: CLOPIDOGREL 75 MG TABLET PO (09:35)
[2023-06-19] MEDS: HEPARIN 5,000 UNIT/ML VIAL 5000 UNIT SUBCUT (09:35)
[2023-06-19] MEDS: ASPIRIN EC 81 MG TABLET PO (09:35)
--- NOTE | 2023-06-19 10:00 | OT.IP.EVAL ---
Past Medical History (Last Reviewed 06/18/23 @ 16:57 by Dhaval Finch MD) Benign essential HTN Chronic low back pain Hyperlipidemia Left foot drop Osteoarthritis Peritonitis Occupational Therapy Inpatient Evaluation/Re-Eval M1 PT/OT-IP Prior Functional Status Start: 06/19/23 10:27 Freq: NEEDED Status: Active Protocol: Document 06/19/23 10:27 [facility] (Rec: 06/19/23 10:37 [facility] [id number]) Medical Review Prior Functional Status Communication Independent Mobility and Gait Use of SPC or at times furniture cruise at night to go to the bathroom. Activities of Daily Living and IADL's Completely independent with all ADL,IADL, and drives. Social History Household Members spouse Living Arrangements House Number of Floors (Floors) One Floor Number of Stairs To Enter/Railing? one step to enter Home Environment High Toilet,Walk in Shower,Tub /Shower Home Equipment Straight Cane,Hand Held Shower ,Grab Bars Near Toilet Additional Social History Comment Pt has a supportive to assist at home as needed. M2 OT-IP Current Condition Start: 06/19/23 10:27 Freq: Status: Active Protocol: Document 06/19/23 10:27 [facility] (Rec: 06/19/23 10:37 [facility] [id number]) Occupational Therapy Current Condition Current Condition Evaluation Date 06/19/23 Treatment Diagnosis TIA Diagnosis Onset Date 06/18/23 M3 OT- IP Subjective and Pain Start: 06/19/23 10:27 Freq: Status: Active Protocol: Document 06/19/23 10:27 [facility] (Rec: 06/19/23 10:37 [facility] [id number]) OT- Subjective Occupational Therapy Visit Type Type Initial Evaluation Visit Start Time 10:00 Visit Stop Time 10:25 Occupational Therapy Visit Comments Patient Comments Pt agreed to do OT eval and pt 's came in during last part of OT eval. Patient/Caregiver Goals TO go home. OT Pain Assessment Pain When Pain Assessed At Rest Pain Present Pain Present Denied Pain M4 OT- IP ADL's Start: 06/19/23 10:27 Freq: Status: Active Protocol: Document 06/19/23 10:27 [facility] (Rec: 06/19/23 10:37 [facility] [id number]) OT TLY-Gpmu-Rvinxfs General Evaluation Self-Feeding Ability Independent OT ADL-Grooming General Evaluation Grooming Ability Independent OT ADL-Oral Care General Eval Oral Care Ability Independent OT ADL-Dressing General Eval Upper Body Dressing Ability Independent Lower Body Dressing Ability Independent OT ADL-Toileting General Evaluation Toileting Ability Independent OT ADL-Bathing Comments OT Bathing Comments Pt states to shower at home. Suggested a shower chair but pt states not needed. M5 OT- IP IADL's Start: 06/19/23 10:27 Freq: Status: Active Protocol: Document 06/19/23 10:27 [facility] (Rec: 06/19/23 10:37 [id number] OT-Instrumental Activities of Daily Living Deficits IADL Deficits Identified No Deficits Home Safety Awareness Awareness of Need for Assistance at Home Good Awareness Ability to Problem Solve Emergency Able to Problem Solve Situations Medication Management Medication Management No Deficits Identified Money Management Money Management No Deficits Identified Meal Preparation Meal Preparation Comments Pt's able to assist. Sewer Pipe Layer Sewer Pipe Layer No Deficits Identified M6 OT- IP Functional Cognition Start: 06/19/23 10:27 Freq: Status: Active Protocol: Document 06/19/23 10:27 [facility] (Rec: 06/19/23 10:37 [facility] [id number]) Cognitive Factors Limiting Selfcare Function Cognitive Ability Level of Alertness Alert Patient Orientation Name,Age,Birthday,Month,Date, Year,Day of Week,Place, Situation Attention Span Ability Capable of Focused Attention, Capable of Sustained Attention Ability to Follow Commands Able to Follow Multi-Step Commands Memory Description No Deficits Noted Safety Awareness No Deficits Noted Problem Solving Ability No deficits Noted Executive Function Ability No Deficits Noted Cognitive Tests SLUMS Pt scored 26/30 on the SLUMS with FIRE PROTECTION EQUIPMENT TECHNICIAN. Cognitive Comments Cognitive Assessment Comments Pt scored 66 seconds on [place] Making Part B which implies normal for visual scanning, speed of processing, executive functioning, mental flexibility and task switching. Pt scored at the 80th percentile for his age. OT- Vision and Hearing OT- Hearing Assessment OT- Hearing Assessment WFL OT- Vision Assessment Visual Acuity Glasses All The Time Visual Attentiveness WFL Occular Pursuits WFL Visual Convergence WFL Visual Chavis WFL Diplopia Absent M7 OT- IP Mobility and Balance Start: 06/19/23 10:27 Freq: Status: Active Protocol: Document 06/19/23 10:27 [facility] (Rec: 06/19/23 10:37 [facility] [id number]) OT-Transfer Assessment Sit to and From Stand Sit to and from Stand Independent Transfers Transfer Ability Independent Technique Transfer Destination Bed,Toilet Transfer Technique Stand Step Pivot Devices Transfer Assistive Devices Straight Cane Comments Mobility Comments Pt able to move independently with his cane in the room. OT- Balance Assessment Sitting Balance and Reactions Static Sitting Balance Ability Normal Dynamic Sitting Balance Ability Normal Standing Balance and Reactions Static Standing Balance Ability Normal Dynamic Standing Balance Ability Good M8 OT- IP Objective Assessments Start: 06/19/23 10:27 Freq: Status: Active Protocol: Document 06/19/23 10:27 [facility] (Rec: 06/19/23 10:37 [facility] [id number]) OT Gross Range of Motion Upper Extremity Range of Motion Assessment Within Functional Limits OT Strength Upper Extremity Strength Assessment Within Functional Limits Hand Enterprise Resource Planner Strength Hand Dominance Right OT- Coordination Assessment Upper Extremity Finger to Nose Test Within Functional Limits Comments Coordination Comments 9 hole peg right hand 26 sec- 50th percentile for age and left hand 27 seconds 75% for age. OT-Muscle Tone Assessment Muscle Tone WNL Yes OT Sensation Assessment Comments Summary Comments Intact for all. M9 OT- IP Assessment and Plan Start: 06/19/23 10:27 Freq: Status: Active Protocol: Document 06/19/23 10:27 [facility] (Rec: 06/19/23 10:37 [facility] [id number]) OT Summary Assessment and Plan Potential Rehabilitation Potential Excellent Analytic Complexity at Evaluation Low Summary Progress Towards Goals Safe For Discharge Assessment Summary Pt low complexity and here due to possible TIA. Pt able to do all ADL's in the room and scored well on cognitive assessments. Pt to go home when medically stable. Pt has a very supportive to assist if needed. Discharge pt from OT services. Frequency of Treatment Frequency Of Treatment Discharge Discharge Recommendations OT Discharge Recommendations Home Transportation Needs at Discharge Private Vehicle
--- NOTE | 2023-06-19 10:53 | ST.IPIE ---
Visit Care Team Role Provider Type Marta Cordero DO Primary Care Provider Physician Specialty: Family Practice Address: [address] [place] [address], [address], [place], [address] Email: [email or web address] Michelle Crowder DO Emergency Provider Physician Referring Provider Specialty: Emergency Medicine Address: [address] [place] [address], [place], [address] Email: [email or web address] Dhaval Finch MD Admit Provider Physician Attending Provider Specialty: Internal Medicine Address: [address] [place] [address] [address], [place], [address] Email: [email or web address] Past Medical History (Last Reviewed 06/18/23 @ 16:57 by Dhaval Finch MD) Benign essential HTN (Medical) Chronic low back pain (Medical) -s/p laminectomy Hyperlipidemia (Medical) Left foot drop (Medical) Osteoarthritis (Medical) Peritonitis (Medical) s/p iliostomy ST IP Initial Evaluation Report [employer] Adult Cognitive Linguistic Eval Start: 06/19/23 09:24 Freq: Status: Active Protocol: Document 06/19/23 09:24 CG (Rec: 06/19/23 09:25 CG [id number]) Adult Cognitive Linguistic Evaluation Session Time Visit Start Time 09:10 Visit Stop Time 09:25 Total Visit Minutes 15 Referral Referring Provider Dhaval Finch (hospitalist) Reason for Referral Slurred speech, suspected TIA Setting Assessment Location Acute Care Visit Type Note Type Initial evaluation Patient Information Identification Type Name Patient History Per H&P: The patient is a 77- year-old male with a history of hypertension and hyperlipidemia who presented with transient neurologic symptoms of word salad, slurred speech and difficulty speaking. His symptoms began at approximately 2:45 p.m. and lasted approximately 30 minutes. The patient was trying to read a recipe card from a meal plan. noted he was not speaking properly. They then called for help. The patient had no facial droop or arm or leg weakness noted. Upon arrival to the ED his symptoms had resolved. He has no previous history of TIA or stroke. In the emergency department his blood pressure was 143 systolic. His age is 72. Symtpoms lasted 30 min. He has a chronic left foot drop and wears a foot brace. This has been ongoing for several years and relates to chronic back problems and back surgery. CTA did indicate no evidence of stroke or bleed. There was diffuse evidence of cerebrovascular disease noted. He also had up to 60% stenosis on the left carotid. He is left-handed. He does note a remote history of smoking having quit about 20 years ago. He has about 20 pack years of tobacco use. He is adopted and unsure of a family history of stroke. ABCD2 score: 4, high risk TIA. NIH score: 0 No headache. Pt was referred to due to stroke symptoms and slurred speech. Hearing Hearing Level Normal Subjective Patient Report Pt was lying partially reclined in bed upon ST entry to room. He was responsive to [employer]PONSIBILITY entering room. When MANAGER [employer]PONSIBILITY asked if she could turn on the lights, the pt offered to do so and did so independently with his bed remote. With regards to his symptoms, the pt reported that his speech difficulties lasted for about 10 minutes, but had since resolved. He denied any concerns with speech, language, swallowing, or cognition, other than the usual old man stuff (in reference to memory). He was pleasant and agreeable to completing [facility] Mental Status Examination. His speech was observed to be 100% intelligible, with no dysarthria noted. Language also appeared subjectively WFL . No apparent word-finding deficits or paraphasias. Syntax intact. Pragmatic language appears appropriate. Pt was able to easily engage in conversation. Mental Status Alert,Responsive,Cooperative Assessment Oral Motor Examination Completed No Results Oral motor structure and function appear grossly intact for speech and swallowing. Informal Assessment Receptive Language Normal Yes Expressive Language Normal Yes Pragmatic Language Normal Yes Speech Normal Yes Cognition Normal Yes Formal Assessment Standardized Test/Screener Type [facility] Mental Status ([facility]) Administration Complete Results . While the authors of the [facility] use 27/30 as a cutoff for neurocognitive disorder, the pt does not present with subjective signs of cognitive disorder based on [employer]PONSIBILITY observation. Additionally, the pt lost points on small semantic points of the exam. For example, when answering a question about the short story (When did she go back to work?) the pt stated After she had kids. Theoretically, he should have stated that it was after the kids were teenagers/after they were grown and then would have been given credit for the question . His overall presentation is not concerning for cognitive deficits at this time. Findings/Results Language Function Within functional limits Cognitive Function Within functional limits Findings The patient's cognitive and linguistic functions appear within functional limits at this time. Though his SLUMS score was a 26/30 due to technical scoring guidelines, he does not present as subjectively cognitively impaired at this time. No apparent difficulties with speech or language. Recommend d/c ST at this time due to return to baseline and no obvious concerns for cognitive -linguistic impairment. Prognosis Prognosis Good Plan of Care Speech-Language Treatment No Patient/Caregiver Education Described results of evaluation,Patient expressed understanding of evaluation Discharge Recommendations Home
[2023-06-19 12:00] VITALS: BP 142/101; PULSE 83; RESP 18; TEMP 36.2; O2SAT 100
--- NOTE | 2023-06-19 12:38 | PM.DS.1 ---
History of Present Illness History of Present Illness Chief complaint: HBP, slurring words, not reading right Narrative: The patient is a 77-year-old male with a history of hypertension and hyperlipidemia who presented with transient neurologic symptoms of word salad, slurred speech and difficulty speaking. His symptoms began at approximately 2:45 p.m. and lasted approximately 30 minutes. The patient was trying to read a recipe card from a meal plan. noted he was not speaking properly. They then called for help. The patient had no facial droop or arm or leg weakness noted. Upon arrival to the ED his symptoms had resolved. He has no previous history of TIA or stroke. In the emergency department his blood pressure was 143 systolic. His age is 72. Symtpoms lasted 30 min. He has a chronic left foot drop and wears a foot brace. This has been ongoing for several years and relates to chronic back problems and back surgery. CTA did indicate no evidence of stroke or bleed. There was diffuse evidence of cerebrovascular disease noted. He also had up to 60% stenosis on the left carotid. He is left-handed. He does note a remote history of smoking having quit about 20 years ago. He has about 20 pack years of tobacco use. He is adopted and unsure of a family history of stroke. ABCD2 score: 4, high risk TIA. NIH score: 0 No headache. Discharge Providers Provider Date of admission: 06/18/23 16:40 Discharge Date: 06/19/23 Primary care physician: Marta Cordero DO Consults: 06/18/23 17:33 Consult to Occupational Therapy Evaluate & Treat Comment: Physician Instructions: Evaluate and treat Consult to Physical Therapy Evaluate & Treat Comment: Physician Instructions: Evaluate and Treat 06/18/23 17:36 Consult to Speech Therapy Evaluate & Treat Comment: Physician Instructions: Evaluate and treat Discharge provider: Dhaval Finch MD Summary Hospital Course Discharge Diagnosis: 1. High risk TIA with isolated speech difficulties, present on admission and resolved. 2. Cerebral vascular disease, present on admission and active. 3. Hypertension, present on admission and active. 4. HLD, present on admission and active. Hospital Course: The patient was admitted with resolved symptoms as noted above. The patient was monitored neurologically and had no further events overnight. Imaging was done and the patient was started on dual antiplatelet therapy for high-risk TIA. His ABCD2 score was 4. His deficit was language, isolated. On the day of discharge he was at baseline and evaluated by speech, Occupational, and Physical therapy. Carotid duplex was negative for critical stenoses of his carotids. He will be discharged with close follow-up with primary care. He does have a chronic left foot drop and wears a brace. This relates to lower back issues and previous surgery. Status at Discharge Cognitive/behavioral status at discharge: oriented Functional status at discharge: independent ambulation Overall status at discharge: patient is back to baseline Time Spent with Patient Time spent: Greater than 30 minutes Exam Vital Signs (past 8 hours): - 06/19/23 08:00 06/19/23 08:00 06/19/23 12:00 Temperature 97 F L 97.1 F L Pulse Rate 74 76 83 Respiratory Rate 20 16 18 Blood Pressure 147/87 H 141/89 H 142/101 H Pulse Oximetry 97 97 100 Oxygen Flow Rate 0 0 Oxygen Delivery Method Room Air Oxygen Flow Rate 0 Narrative Exam Narrative: NAD Lungs clear CV regular and without murmur Abdomen soft. No leg edema. Normal neuro exam and speech. Chronic left foot drop. Objective ECG Impression: NSR Imaging CT scan - head: Radiologist's impression: IMPRESSION: No acute intracranial pathology. Echo: Radiologist's impression: he ejection fraction is estimated to be 60-65%. Diastolic parameters suggest probable normal left ventricular diastolic function and normal filling pressures. The right ventricle is normal in size and function. There is mild tricuspid regurgitation. The right ventricular systolic pressure is estimated to be at least 29 mmHg based on an estimated right atrial pressure of 3 mm Hg. Compared to the prior study dated 08/01/2020, no significant change. MRI - head: Radiologist's impression: IMPRESSION: No findings of acute or subacute infarction can be seen. Relatively prominent brain parenchymal volume loss is noted. Carotid US: Radiologist's impression: 1. Left than 50% stenosis of the bilateral internal carotid arteries. 2. Abnormal right vertebral artery waveforms. This pattern can be associated with occult or early subclavian steal syndrome. Head and Neck CT Angio: Radiologist's impression: HEAD CT ANGIOGRAPHY: Anterior circulation: Moderate calcific plaque causes mild to moderate diffuse stenosis of the cavernous segments of the internal carotid arteries bilaterally. The flow within the paired anterior cerebral arteries is normal and symmetric. The flow within the middle cerebral arteries is normal and symmetric. The anterior communicating artery is seen. No aneurysms are seen. Posterior circulation: Visualized portions of the vertebral arteries demonstrate normal caliber, and join to form a normal appearing basilar artery. Flow within the posterior cerebral arteries is normal and symmetric. No aneurysms are seen. NECK CT ANGIOGRAPHY: Carotid system: The great vessels demonstrate a conventional anatomy as they arise from the aortic arch. Roughly 30% calcific origin stenosis of the innominate and left common carotid arteries. Roughly 60% calcific origin stenosis of the left subclavian artery.. The common carotid arteries demonstrate normal caliber and courses. High-grade, roughly 80% origin stenosis of the right internal carotid artery. Roughly 60% origin stenosis of the left internal carotid artery. Posterior circulation: High-grade calcific origin stenosis of the bilateral vertebral arteries. The more superior extracranial portions of both vertebral arteries also demonstrate normal courses and calibers. They join to form a normal appearing basilar artery. Soft tissues: Visualized neck soft tissues demonstrate no suspicious abnormalities. Moderate apically emphysema is present. Bones: No suspicious bony lesions. Visualized cervical spine appears normally aligned. IMPRESSION: 1. No acute process involving the arterial tree of the head and neck. 2. Anterior and posterior circulation stenoses as described above. 3. Emphysema. Labs 06/19/23 05:33 06/19/23 05:33 Labs: Laboratory Results - last 24 hr 06/18/23 06/18/23 06/18/23 15:19 16:03 16:03 WBC 6.2 RBC 4.74 Hgb 14.2 Hct 41.5 MCV 87.6 MCH 30.0 MCHC 34.2 RDW 13.0 Plt Count 226 Neut % (Auto) 62.2 Lymph % (Auto) 25.5 [place] % (Auto) 10.9 Eos % (Auto) 1.1 L Baso % (Auto) 0.3 Neut # (Auto) 3800 Lymph # (Auto) 1600 [place] # (Auto) 700 Eos # (Auto) 100 Baso # (Auto) 0 PT 12.3 INR 1.1 APTT 33 Sodium 137 Potassium 3.8 Chloride 100 Carbon Dioxide 25 BUN 13 Creatinine 0.82 Estimated GFR > 60 BUN/Creatinine Ratio 15.9 Glucose 93 Hemoglobin A1c 5.6 Calcium 10.1 Total Bilirubin 0.6 AST 29 ALT 22 Alkaline Phosphatase 54 Total Creatine Kinase 148 Troponin I < 0.012 Total Protein 8.1 Albumin 4.6 Globulin 3.5 Albumin/Globulin Ratio 1.3 Urine Color Yellow Urine Appearance Clear Urine pH 7.0 Normal Ur Specific [place] <=1.005 Urine Protein Negative Urine Glucose (UA) Negative Urine Ketones Negative Urine Occult Blood Negative Urine Nitrate Negative Urine Bilirubin Negative Urine Urobilinogen 0.2 Ur Leukocyte Esterase Negative Urine RBC None seen Urine WBC None seen Ur Squamous Epith Cells 0-1 /hpf Urine Bacteria None seen Ur Culture Indicated? Cult not indicated Vol Urine Centrifuged 10ml (spun) U Opiates 300ng/mL cut Negative Ur Oxycodone Screen Negative Urine Methadone Screen Negative Ur Barbiturates Screen Negative U Tricyclic Antidepress Negative Ur Phencyclidine Scrn Negative Ur Amphetamines Screen Negative U Methamphetamines Scrn Negative Ur MDMA Scrn (Ecstasy) Negative U Benzodiazepines Scrn Negative Urine Cocaine Screen Negative U Marijuana (THC) Screen Positive H Urine Specific [place] Normal Ethyl Alcohol < 10 Ur Creatinine Normal SARS-CoV-2 (PCR) 06/18/23 06/19/23 19:00 05:33 WBC 3.9 L RBC 4.49 L Hgb 13.4 L Hct 38.8 L MCV 86.5 MCH 30.0 MCHC 34.6 RDW 12.9 Plt Count 204 Neut % (Auto) 47.9 L Lymph % (Auto) 33.7 [place] % (Auto) 14.7 H Eos % (Auto) 3.1 Baso % (Auto) 0.6 Neut # (Auto) 1900 Lymph # (Auto) 1300 [place] # (Auto) 600 Eos # (Auto) 100 Baso # (Auto) 0 PT INR APTT Sodium 136 L Potassium 3.9 Chloride 105 Carbon Dioxide 24 BUN 12 Creatinine 0.73 Estimated GFR > 60 BUN/Creatinine Ratio 16.4 Glucose 101 Hemoglobin A1c Calcium 9.6 Total Bilirubin AST ALT Alkaline Phosphatase Total Creatine Kinase Troponin I Total Protein Albumin Globulin Albumin/Globulin Ratio Urine Color Urine Appearance Urine pH Ur Specific [place] Urine Protein Urine Glucose (UA) Urine Ketones Urine Occult Blood Urine Nitrate Urine Bilirubin Urine Urobilinogen Ur Leukocyte Esterase Urine RBC Urine WBC Ur Squamous Epith Cells Urine Bacteria Ur Culture Indicated? Vol Urine Centrifuged U Opiates 300ng/mL cut Ur Oxycodone Screen Urine Methadone Screen Ur Barbiturates Screen U Tricyclic Antidepress Ur Phencyclidine Scrn Ur Amphetamines Screen U Methamphetamines Scrn Ur MDMA Scrn (Ecstasy) U Benzodiazepines Scrn Urine Cocaine Screen U Marijuana (THC) Screen Urine Specific [place] Ethyl Alcohol Ur Creatinine SARS-CoV-2 (PCR) Negative PFSH Medical History Peritonitis Chronic low back pain Left foot drop Osteoarthritis Benign essential HTN Hyperlipidemia Social History household members: spouse Smoking Status: Never smoker Discharge Assessment & Plan Assessment and Plan Assessment: 1. High risk TIA with isolated speech difficulties, present on admission and resolved. 2. Cerebral vascular disease, present on admission and active. 3. Hypertension, present on admission and active. 4. HLD, present on admission and active. Plan of Treatment: Discharge on DAPT for 21 days, then consider ASA monotherapy. High dose Statin Close PCP follow up (within 6 days). Discharge Plan Discharge Plan Patient Disposition: Home Provider Discharge Comment: Stable for discharge on 21 days of dual antiplatelet therapy and close follow-up. We will also be on high dose statin. Discharge orders & Medications Prescriptions: New atorvastatin 20 mg Tablet 80 mg PO BEDTIME Qty: 30 3RF clopidogrel 75 mg Tablet 75 mg PO DAILY Qty: 30 2RF aspirin 81 mg capsule 81 mg PO DAILY Qty: 30 2RF Continued [SUPER B-50 COMPLEX] 1 tab PO QDAY Qty: 0 CA PANTOTHENATE/FOLIC ACID/VIT (MULTIVITAMIN) 1 tab PO QDAY Qty: 0 CHOLECALCIFEROL (VITAMIN D) 2,000 units PO QDAY Qty: 0 Fish Oil (FISH OIL~) 2,400 mg PO QDAY Qty: 0 milk thistle seed extract 175 mg capsule 175 mg PO DAILY amlodipine 5 mg tablet 5 mg PO DAILY Qty: 90 3RF lisinopril 20 mg tablet 20 mg PO DAILY Qty: 90 3RF rosuvastatin 5 mg tablet 5 mg PO DAILY Qty: 90 0RF Medication counseling provided by Pharmacist: No Follow up/Referrals: Marta Cordero DO [Primary Care Provider] - Discharge Health Status Multidrug resistant organism: No MDRO Diet/Activity/Treatments Diet: Diet as Tolerated Visit Report/Discharge Packet Instructions: DI for Transient Ischemic Attack, Atorvastatin, Clopidogrel Stand Alone Forms: Patient Portal/API, Stroke Signs & Symptoms Discharge Data Primary Care Provider: Marta Cordero Attending Provider: Dhaval Finch Admit Date/Time: 06/18/23 16:40 Quality VTE Deep Vein Thrombosis/Pulmonary Embolism Present on Admission: No
== END 2023-06-19 13:05 | disposition home or self-care (01) ==
LOC: ED 15:51 → AC 16:41
PROVIDERS: Admitting Provider Hospitalist; Emergency Provider Emergency Medicine; PCP Family Medicine; Referring Provider Emergency Medicine; Visit Provider Hospitalist
DX: R47.81 Slurred speech (principal); I10 Essential (primary) hypertension; E78.5 Hyperlipidemia, unspecified; R29.700 NIHSS score 0; I67.9 Cerebrovascular disease, unspecified
CPT/HCPCS: 36415; 70450; 70496; 70498; 70551; 80048; 80053; 80305; 80320; 81001; 81003; 82550; 82962; 83036; 84484; 85025; 85610; 85730; 87635; 92523; 93005; 93306; 93880; 96372; 97161; 97165; 99284; 99285; G0378; J1644; Q9967

== ENCOUNTER → 2023-08-29 06:57 | Outpatient (CLI) | payer OTHER, SELFPAY ==
[2023-06-18 17:30] VITALS: BMI 31.8
[2023-08-29 08:57] LABS: Alanine Aminotransferase 29 IU/L (<50); Albumin 4.1 g/dL (3.5-5.0); Albumin Globulin Ratio 1.4 (1.0-2.8); Alkaline Phosphatase 59 U/L (38-126); Aspartate Aminotransferase 33 IU/L (17-59); BUN Creatinine Ratio 15.1 (6-22); Bilirubin Total 0.8 mg/dL (0.2-1.3); Blood Urea Nitrogen 13 mg/dL (9-20); Calcium 9.7 mg/dL (8.4-10.2); Carbon Dioxide 28 mmol/L (22-32); Chloride 103 mmol/L (98-107); Cholesterol 128 mg/dL (140-199); Estimated Glomerular Filt Rate > 60 mL/min (>60); Globulin 2.9 g/dL (1.7-4.1); Glucose 114 mg/dL (80-110); HDL Cholesterol 62 mg/dL (40-60); HEMOLYSIS < 15 (0-50); LDL Cholesterol Calculated 55 mg/dL (<100); Potassium 4.3 mmol/L (3.4-5.1); Sodium 138 mmol/L (137-145); Triglycerides 57 mg/dL (35-150)
== END ==
PROVIDERS: PCP Family Medicine; Referring Provider Family Medicine; Visit Provider Family Medicine
DX: E78.5 Hyperlipidemia, unspecified (principal); I10 Essential (primary) hypertension
CPT/HCPCS: 36415; 80053; 80061

== ENCOUNTER → 2024-02-10 11:30 | Outpatient (CLI) | payer OTHER, SELFPAY ==
[2023-06-18 17:30] VITALS: BMI 31.8
[2024-02-10 13:03] LABS: Hemoglobin A1C% w Est Avg Glu 5.5 % (4.0-6.0)
[2024-02-10 13:14] LABS: BUN Creatinine Ratio 17.6 (6-22); Blood Urea Nitrogen 16 mg/dL (9-20); Calcium 9.6 mg/dL (8.4-10.2); Carbon Dioxide 27 mmol/L (22-32); Chloride 102 mmol/L (98-107); Estimated Glomerular Filt Rate > 60 mL/min (>60); Glucose 97 mg/dL (80-110); HEMOLYSIS < 15 (0-50); Potassium 4.2 mmol/L (3.4-5.1); Sodium 135 mmol/L (137-145)
== END ==
PROVIDERS: PCP Family Medicine; Referring Provider Family Medicine; Visit Provider Family Medicine
DX: R73.01 Impaired fasting glucose (principal); I10 Essential (primary) hypertension
CPT/HCPCS: 36415; 80048; 83036

== ENCOUNTER → 2024-08-12 07:08 | Outpatient (CLI) | payer OTHER, SELFPAY ==
[2023-06-18 17:30] VITALS: BMI 31.8
[2024-08-12 08:12] LABS: BUN Creatinine Ratio 16.3 (6-22); Blood Urea Nitrogen 16 mg/dL (9-20); Calcium 9.4 mg/dL (8.4-10.2); Carbon Dioxide 25 mmol/L (22-32); Chloride 102 mmol/L (98-107); Cholesterol 125 mg/dL (140-199); Estimated Glomerular Filt Rate > 60 mL/min (>60); Glucose 116 mg/dL (80-110); HDL Cholesterol 63 mg/dL (40-60); HEMOLYSIS < 15 (0-50); LDL Cholesterol Calculated 52 mg/dL (<100); Potassium 4.1 mmol/L (3.4-5.1); Sodium 136 mmol/L (137-145); Triglycerides 50 mg/dL (35-150)
[2024-08-12 09:45] LABS: Hep C Virus Ab w/Reflex Quant REACTIVE s/c (NEGATIVE)
== END ==
PROVIDERS: PCP Family Medicine; Referring Provider Family Medicine; Visit Provider Family Medicine
DX: Z00.00 Encounter for general adult medical examination without abnormal findings (principal); E78.5 Hyperlipidemia, unspecified; I10 Essential (primary) hypertension
CPT/HCPCS: 36415; 80048; 80061; 86803; 87522